=== PATIENT | female | born 1935 | race Caucasian/White ===

== ENCOUNTER → 2017-11-21 | Outpatient (CLI) | payer MEDICARE, OTHER ==
[2017-11-21 12:34] LABS: PROTHROMBIN TIME - PATIENT 95.3 SEC (9.8-11.6)
[2017-11-21 12:41] LABS: INTERNATIONAL NORMALIZED RATIO 9.6 RATIO
== END ==
LOC: CLAB 11:53
PROVIDERS: ATTEND Internal Medicine Cardiovascular Disease
DX: Z95.4 Presence of other heart-valve replacement (principal)
CPT/HCPCS: 36415; 85610

== ENCOUNTER → 2017-11-22 | Outpatient (CLI) | payer MEDICARE, OTHER ==
[2017-11-22 10:03] LABS: PROTHROMBIN TIME - PATIENT 92.3 SEC (9.8-11.6)
[2017-11-22 10:22] LABS: INTERNATIONAL NORMALIZED RATIO 9.3 RATIO
== END ==
LOC: CLAB 09:39
PROVIDERS: ATTEND Internal Medicine Cardiovascular Disease
DX: I05.9 Rheumatic mitral valve disease, unspecified (principal); Z95.4 Presence of other heart-valve replacement; Z51.81 Encounter for therapeutic drug level monitoring
CPT/HCPCS: 36415; 85610

== ENCOUNTER 2018-05-18 11:03 | Inpatient (IN) ==
[2018-05-18] MEDS ORDERED: Sod Chloride 0.9% Inj 1,000 ML IV.SIG ONE ×2 (12:34→13:52)
--- NOTE | 2018-05-18 12:57 | ED ---
HPI General Chief Complaint: Fever Stated Complaint: Multiple Complaints Time Seen by Provider: 05/18/18 12:34 Source: patient and family Mode of arrival: ambulatory Limitations: no limitations History of Present Illness HPI Narrative: 83-year-old female with PMH of HTN, stage IV breast cancer, followed by the [facility] in [place] on Coumadin presents the ED for evaluation of 3 day history of intermittent fever, highest measured temp 102 by oral thermometer. She also complains of sinus congestion, sore throat and cough productive of green sputum. She complains of dull, frontal and right sided headache x 10 days. She denies dizziness, vision changes, chest pain, palpitations, nausea, vomiting, abdominal pain, dysuria, hematuria, weakness of the extremities. She states that she was recently initiated on a new chemotherapy, capecitabine. She has only taken a few doses of this medication. She states that she knows of metastasis in the spine, right arm and left lung. She states that she recently underwent biopsy of the lung mass and is awaiting those results currently. Related Data Home Medications Medication Instructions Recorded Confirmed capecitabine 1,000 mg PO Q12H 05/18/18 05/18/18 capecitabine 500 mg PO DAILY 05/18/18 05/18/18 hydrochlorothiazide 12.5 mg PO DAILY 05/18/18 05/18/18 lisinopril 05/18/18 losartan 100 mg PO DAILY 05/18/18 05/18/18 ondansetron HCl [Zofran] 4 mg PO Q6HR 05/18/18 05/19/18 oxycodone-acetaminophen [Percocet] 1 tab PO Q4-6H PRN 05/18/18 05/18/18 pantoprazole 40 mg PO DAILY 05/18/18 05/18/18 pravastatin 20 mg PO DAILY 05/18/18 05/18/18 vit D3-folic [id number] 05/18/18 warfarin 2.5 mg PO Q OTHER DAY 05/18/18 05/18/18 warfarin [Coumadin] 1.25 mg PO EVERY OTHER DAY 05/18/18 05/18/18 Allergies Allergy/AdvReac Type Severity Reaction Status Date / Time No Known Allergies Allergy Unverified 05/18/18 12:34 Review of Systems ROS: all other systems reviewed are negative [facility] Medical History Medical History Bone metastasis (Acute) Breast cancer (Acute) Cataract (Acute) GERD (gastroesophageal reflux disease) (Acute) Gallbladder disease (Acute) HTN (hypertension) (Acute) High cholesterol (Acute) History of hysterectomy (Acute) Metastatic breast cancer (Acute) Port catheter in place (Acute) Surgical History Surgical History History of colon resection (Acute) History of heart valve replacement (Acute) S/P hip replacement (Acute) Social History Social History Substance History: No History of Abuse Second Hand Smoke Exposure: No Smoking Status: Never smoker Tobacco Type: Cigarettes How Often Do You Have a Drink Containing Alcohol: Never Recent Travel in [facility] within the Last 8 Weeks: No Recent Out of Country Travel within the Last 8 Weeks: No Immunization History Tetanus Immunization: Unsure Hx Influenza Vaccine This Season: No Exam Narrative Exam Narrative: GENERAL: Well-nourished, well-developed white female in no acute distress. SKIN: Focused skin assessment warm/dry. Well-healed port in the right chest. HEAD: Atraumatic. Normocephalic. EYES: Pupils equal and round. No scleral icterus. No injection or drainage. ENT: No nasal bleeding or discharge. Mucous membranes pink and moist. Pearly solis tympanic membranes bilaterally. Oropharynx without erythema, edema, exudate. NECK: Trachea midline. No JVD. CARDIOVASCULAR: Regular rate and rhythm. No murmur appreciated. RESPIRATORY: No accessory muscle use. Clear to auscultation. Breath sounds marginally diminished in the left lower lobe. GASTROINTESTINAL: Abdomen soft, non-tender, nondistended. Hepatic and splenic margins not palpable. MUSCULOSKELETAL: No obvious deformities. No clubbing. No cyanosis. No edema. Tender to palpation of the distal third, dorsal aspect of the right foot. Moves extremities spontaneously. NEUROLOGICAL: Awake and alert. No obvious cranial nerve deficits. Motor grossly within normal limits. Normal speech. PSYCHIATRIC: Appropriate mood and affect; insight and judgment normal. Course Initial Documented Vital Signs Temperature 97.9 F 05/18/18 11:08 Pulse Rate 83 05/18/18 11:08 Respiratory Rate 17 05/18/18 11:08 Blood Pressure 140/76 05/18/18 11:08 Pulse Oximetry 98 05/18/18 11:08 Last Documented Vital Signs Temperature 98.3 F 05/19/18 08:30 Pulse Rate 85 05/19/18 08:30 Respiratory Rate 16 05/19/18 08:30 Blood Pressure 153/77 H 09/24/18 04:00 Pulse Oximetry 98 05/19/18 08:30 Medical Decision Making XIOMY Attestation XIOMY supervised visit: Yes Attestation: I, Dr. Mcclellan, have reviewed the advance practice practitioner's documentation and am in agreement, met with the patient face to face, made the diagnosis, and the medical decision making was done by me. *My assessment and Findings: Patient seen and examined by me in addition to Emilia Huerta, this is a well-appearing 83-year-old female, vital signs within normal limits, fevers to 102 last night documented by her daughter. She did take some Tylenol prior to arrival and afebrile here. History of stage IV breast cancer, recent first dose of oral chemotherapy, followed primarily out of [facility] at this time but has been established with Dr. Castorena. Patient also complains of headache, but she is anticoagulated, CT head pending, she is neurologically intact, chest x-ray shows suspected consolidation of left lower lobe and the patient has had a recent biopsy of the lung. I have ordered a CT scan with IV contrast as well. Empiric antibiotics while we are waiting for her lab results. Patient's workup is significant for minimal pneumothorax (post procedure) and possible intracranial hemorrhage on ct which was not fully excluded on MRI. She also has significant metastatic lesions on all imaging studies. No source of fever readily identifiable but my concern is for the CT findings in lieu of her headache, anticoagulation and malignant disease. I don't think there is significant benefit to reversing her coumadin at this stage. Will place in the hospital for evaluation by neurosurgery. MDM Narrative Medical decision making narrative: 83-year-old female with PMH of HTN, stage IV metastatic breast cancer presents the ED for evaluation of intermittent fever, highest 102 last night by oral thermometer. Afebrile on arrival. Patient also complains of 10 day history of frontal and right-sided headache. Vitals reviewed. No focal neuro deficits on exam. Lung sounds clear and equal bilaterally. No lower extremity edema. IV was established. Patient was administered 1 L normal saline, 4 mg of morphine, 4 mg Zofran. CBC: WBC 6.2. RBCs 2.64. Hemoglobin 8.6. CMP: Potassium 3.3. BUN 13, creatinine 1.32, GFR 3 9. Calcium 10.4. Albumin 2.9. LACTIC ACID 0.9. INR 2.0. CXR: Metastatic disease in left lower lobe consolidation suspected. Valvular prosthesis noted. Vancomycin and Zosyn initiated. CT CHEST WITH CONTRAST: Metastatic disease with pulmonary nodules, bilateral effusions, left greater than right, ascending aortic aneurysm, indeterminate hypervascular liver lesion, right pneumothorax. CT HEAD: Density in the right frontal cortical/subcortical white matter questionable sliver-like hemorrhage, MRI with and without contrast recommended. MRI BRAIN: Extra-axial mass, possible metastases in the skull bones, does not completely rule out risk of ICH. I spoke with regarding the MRI findings. He does not think the patient needs admission to the ICU. Will admit to the medicine team for further evaluation of these findings. I spoke with Dr. KARIMI who agrees to accept the patient to the medicine service. Please see their notes for disposition. Medical Screen Exam Complete: Yes Emergency Medical Condition: Yes Lab Data Result diagrams: 05/19/18 03:50 05/19/18 03:50 Lab Results 05/18/18 05/18/18 05/18/18 Range/Units 13:15 13:15 13:15 WBC 6.2 (4.0-11.0) th/mm3 RBC 2.64 L (4.00-5.30) mil/mm3 Hgb 8.6 L (11.6-15.3) gm/dL Hct 25.3 L (35.0-46.0) % MCV 95.9 (80.0-100.0) fL MCH 32.5 (27.0-34.0) pg MCHC 33.9 (32.0-36.0) % RDW 14.8 (11.6-17.2) % Plt Count 224 (150-450) th/mm3 MPV 8.3 (7.0-11.0) fL Prelim Diff (Auto) Slide review pending Neut % (Auto) 77.4 H (16.0-70.0) % Lymph % (Auto) 9.9 (9.0-44.0) % [place] % (Auto) 8.6 H (0.0-8.0) % Eos % (Auto) 2.9 (0.0-4.0) % Baso % (Auto) 1.2 (0.0-2.0) % Neut # (Auto) 4.8 (1.8-7.7) th/mm3 Lymph # (Auto) 0.6 L (1.0-4.8) th/mm3 [place] # (Auto) 0.5 (0.0-0.9) th/mm3 Eos # (Auto) 0.2 (0.0-0.4) th/mm3 Baso # (Auto) 0.1 (0.0-0.2) th/mm3 WBC Differential . Diff Scan Auto diff confirmed Differential Comment . PT (9.8-11.6) sec INR Ratio Sodium 139 (136-145) meq/L Potassium 3.3 L (3.5-5.1) meq/L Chloride 106 (98-107) meq/L Carbon Dioxide 24.7 (21.0-32.0) meq/L Anion Gap 8 (5-15) meq/L BUN 13 (7-18) mg/dL Creatinine 1.32 H (0.50-1.00) mg/dL Estimated GFR 39 L (>89) mL/min Random Glucose 91 (74-106) mg/dL Lactic Acid 0.9 (0.4-2.0) mmol/L Calcium 10.4 H (8.5-10.1) mg/dL Total Bilirubin 0.5 (0.2-1.0) mg/dL AST 40 H (15-37) U/L ALT 17 (10-53) U/L Alkaline Phosphatase 192 H (45-117) U/L Total Protein 6.3 L (6.4-8.2) g/dL Albumin 2.9 L (3.4-5.0) g/dL Urine Color (Yellw/Straw) Urine Clarity (Clear) Urine pH (5.0-8.5) Ur Specific Pinon (1.002-1.035) Urine Protein (Neg-Trace) mg/dL Urine Glucose (UA) (Negative) mg/dL Urine Ketones (Negative) mg/dL Urine Occult Blood (Negative) Urine Nitrate (Negative) Urine Bilirubin (Negative) Urine Urobilinogen (Less than 2) mg/dL Ur Leukocyte Esterase (Negative) Urine RBC (0-3) /hpf Urine WBC (0-5) /hpf Ur Squamous Epith Cells (0-5) /hpf Ur Transition Epith Cell (None) /hpf Ur Renal Epithelial Cell (None) /hpf Urine Bacteria (None) /hpf Urine Mucus (Occasional) /lpf Micro UA Comment Ur Microscopic Review Urine Culture Comments 05/18/18 05/18/18 05/19/18 Range/Units 14:40 15:20 03:50 WBC (4.0-11.0) th/mm3 RBC (4.00-5.30) mil/mm3 Hgb (11.6-15.3) gm/dL Hct (35.0-46.0) % MCV (80.0-100.0) fL MCH (27.0-34.0) pg MCHC (32.0-36.0) % RDW (11.6-17.2) % Plt Count (150-450) th/mm3 MPV (7.0-11.0) fL Prelim Diff (Auto) Neut % (Auto) (16.0-70.0) % Lymph % (Auto) (9.0-44.0) % [place] % (Auto) (0.0-8.0) % Eos % (Auto) (0.0-4.0) % Baso % (Auto) (0.0-2.0) % Neut # (Auto) (1.8-7.7) th/mm3 Lymph # (Auto) (1.0-4.8) th/mm3 [place] # (Auto) (0.0-0.9) th/mm3 Eos # (Auto) (0.0-0.4) th/mm3 Baso # (Auto) (0.0-0.2) th/mm3 WBC Differential Diff Scan Differential Comment PT 20.4 H 17.6 H (9.8-11.6) sec INR 2.0 1.7 Ratio Sodium (136-145) meq/L Potassium (3.5-5.1) meq/L Chloride (98-107) meq/L Carbon Dioxide (21.0-32.0) meq/L Anion Gap (5-15) meq/L BUN (7-18) mg/dL Creatinine (0.50-1.00) mg/dL Estimated GFR (>89) mL/min Random Glucose (74-106) mg/dL Lactic Acid (0.4-2.0) mmol/L Calcium (8.5-10.1) mg/dL Total Bilirubin (0.2-1.0) mg/dL AST (15-37) U/L ALT (10-53) U/L Alkaline Phosphatase (45-117) U/L Total Protein (6.4-8.2) g/dL Albumin (3.4-5.0) g/dL Urine Color Straw (Yellw/Straw) Urine Clarity Clear (Clear) Urine pH 5.0 (5.0-8.5) Ur Specific [place] 1.006 (1.002-1.035) Urine Protein Negative (Neg-Trace) mg/dL Urine Glucose (UA) Negative (Negative) mg/dL Urine Ketones Negative (Negative) mg/dL Urine Occult Blood Negative (Negative) Urine Nitrate Negative (Negative) Urine Bilirubin Negative (Negative) Urine Urobilinogen Less than 2 (Less than 2) mg/dL Ur Leukocyte Esterase Negative (Negative) Urine RBC Less than 1 (0-3) /hpf Urine WBC 4 (0-5) /hpf Ur Squamous Epith Cells <1 (0-5) /hpf Ur Transition Epith Cell 1 (None) /hpf Ur Renal Epithelial Cell <1 (None) /hpf Urine Bacteria Rare H (None) /hpf Urine Mucus Few H (Occasional) /lpf Micro UA Comment Culture not ind Ur Microscopic Review Not Reportable Urine Culture Comments Culture not ind 05/19/18 05/19/18 Range/Units 03:50 03:50 WBC 7.3 (4.0-11.0) th/mm3 RBC 2.84 L (4.00-5.30) mil/mm3 Hgb 9.1 L (11.6-15.3) gm/dL Hct 27.3 L (35.0-46.0) % MCV 96.4 (80.0-100.0) fL MCH 32.0 (27.0-34.0) pg MCHC 33.2 (32.0-36.0) % RDW 15.2 (11.6-17.2) % Plt Count 263 (150-450) th/mm3 MPV 9.1 (7.0-11.0) fL Prelim Diff (Auto) Slide review pending Neut % (Auto) 76.6 H (16.0-70.0) % Lymph % (Auto) 11.0 (9.0-44.0) % [place] % (Auto) 9.1 H (0.0-8.0) % Eos % (Auto) 2.4 (0.0-4.0) % Baso % (Auto) 0.9 (0.0-2.0) % Neut # (Auto) 5.6 (1.8-7.7) th/mm3 Lymph # (Auto) 0.8 L (1.0-4.8) th/mm3 [place] # (Auto) 0.7 (0.0-0.9) th/mm3 Eos # (Auto) 0.2 (0.0-0.4) th/mm3 Baso # (Auto) 0.1 (0.0-0.2) th/mm3 WBC Differential . Diff Scan Auto diff confirmed Differential Comment . PT (9.8-11.6) sec INR Ratio Sodium 140 (136-145) meq/L Potassium 3.8 (3.5-5.1) meq/L Chloride 106 (98-107) meq/L Carbon Dioxide 24.6 (21.0-32.0) meq/L Anion Gap 9 (5-15) meq/L BUN 12 (7-18) mg/dL Creatinine 1.38 H (0.50-1.00) mg/dL Estimated GFR 37 L (>89) mL/min Random Glucose 79 (74-106) mg/dL Lactic Acid (0.4-2.0) mmol/L Calcium 10.3 H (8.5-10.1) mg/dL Total Bilirubin (0.2-1.0) mg/dL AST (15-37) U/L ALT (10-53) U/L Alkaline Phosphatase (45-117) U/L Total Protein (6.4-8.2) g/dL Albumin (3.4-5.0) g/dL Urine Color (Yellw/Straw) Urine Clarity (Clear) Urine pH (5.0-8.5) Ur Specific [place] (1.002-1.035) Urine Protein (Neg-Trace) mg/dL Urine Glucose (UA) (Negative) mg/dL Urine Ketones (Negative) mg/dL Urine Occult Blood (Negative) Urine Nitrate (Negative) Urine Bilirubin (Negative) Urine Urobilinogen (Less than 2) mg/dL Ur Leukocyte Esterase (Negative) Urine RBC (0-3) /hpf Urine WBC (0-5) /hpf Ur Squamous Epith Cells (0-5) /hpf Ur Transition Epith Cell (None) /hpf Ur Renal Epithelial Cell (None) /hpf Urine Bacteria (None) /hpf Urine Mucus (Occasional) /lpf Micro UA Comment Ur Microscopic Review Urine Culture Comments Imaging Data Radiologist's impression: Chest X-Ray 05/18/18 12:35 CONCLUSION: Metastatic disease to the chest and left lower lobe consolidation suspected. Head CT 05/18/18 12:57 The examination demonstrates patchy hypodensity in the bilateral periventricular white matter and centrum semiovale most likely related to chronic microvascular ischemic disease. There is identified in the right frontal cortical/subcortical region on axial image 21 curvilinear high density which may reflect a small amount of parenchymal blood. No surrounding edema. No mass effect. CONCLUSION: 1. Patchy white matter disease. This is most likely chronic in nature. 2. Indeterminate area of hypodensity in the right frontal cortical/subcortical white matter may reflect a sliver-like area of hemorrhage. Given the history of malignancy consider MRI of the brain with and without contrast for further assessment. . Chest CT 05/18/18 13:39 CONCLUSION: 1. Metastatic disease to the chest with bilateral pulmonary nodules, bilateral effusions left greater than right. 2. Ascending aortic aneurysm. 3. Indeterminate hypervascular liver lesion. 4. Cholelithiasis. 5. There is a right-sided pneumothorax. Foot X-Ray 05/18/18 13:52 CONCLUSION: Decreased bone density. Calcaneal spur. Head MRI 05/18/18 14:27 CONCLUSION: 1. The area of abnormal increased density on CT has corresponding blooming artifact on susceptibility weighted images. This can be seen with a small parenchymal bleed versus artifact related to calcification from previous insult. A short interval follow-up CT in 2 weeks' time may be of benefit to assess for resolution of this finding. 2. Additional abnormalities on this examination include an extra-axial mass along the right frontal falx cerebri measuring up to 1 cm. The differential diagnosis includes a meningioma along the falx versus a metastatic deposit. 3. The pituitary is heterogeneous and there is thickening of the infundibular stalk. 4. Abnormal marrow replacement and enhancement is seen within the skull base as described above. Metastatic disease would be a leading consideration. Discharge Plan Discharge Disposition Patient Disposition: 30 Still Patient Physicians Team ED Provider: Cortes Mcclellan ED Midlevel Provider: Emilia Huerta Primary Care Provider: UNKNOWN, Attending Provider: Teddy Balderas Other Providers: Jesús Khoury ; Nabila Spence ; Katy Clemons ; Klaus Tobar Discharge Interventions Interventions: ED Discharge Assessment Last Done: 05/19/18 00:30 Vital Signs Last Done: 05/18/18 11:54 Status ED Status: Left Department Discharge Information Discharge Date/Time: 05/19/18 00:31
[2018-05-18 13:26] LABS: Baso # (Auto) 0.1 th/mm3 (0.0-0.2); Baso % (Auto) 1.2 % (0.0-2.0); Eos # (Auto) 0.2 th/mm3 (0.0-0.4); Eos % (Auto) 2.9 % (0.0-4.0); Hematocrit 25.3 % (35.0-46.0); Hemoglobin 8.6 gm/dL (11.6-15.3); Lymph # (Auto) 0.6 th/mm3 (1.0-4.8); Lymph % (Auto) 9.9 % (9.0-44.0); Mean Corpuscular HGB Conc 33.9 % (32.0-36.0); Mean Corpuscular Hemoglobin 32.5 pg (27.0-34.0); Mean Corpuscular Volume 95.9 fL (80.0-100.0); Mean Platelet Volume 8.3 fL (7.0-11.0); Mono # (Auto) 0.5 th/mm3 (0.0-0.9); Mono % (Auto) 8.6 % (0.0-8.0); Neut # (Auto) 4.8 th/mm3 (1.8-7.7); Neut % (Auto) 77.4 % (16.0-70.0); Platelet Count 224 th/mm3 (150-450); Red Blood Count 2.64 mil/mm3 (4.00-5.30); Red Cell Distribution Width 14.8 % (11.6-17.2); White Blood Count 6.2 th/mm3 (4.0-11.0)
--- NOTE | 2018-05-18 13:30 | XR ---
EXAM DATE: 05/18/2018 1:23 PM EDT AGE/SEX: 83 years / Female INDICATIONS: Fever CLINICAL DATA: This is the patient's initial encounter. Patient reports that signs and symptoms have been present for 1 day and indicates a pain score of 0/10. MEDICAL/SURGICAL HISTORY: . Hypertension . Heart valve repair, Port Placement COMPARISON: [facility], PET/CT TUMOR, 04/18/2018. . FINDINGS: Right-sided portacatheter is noted and the tip overlies the SVC. Sternotomy wires and cardiac valvula r prosthesis noted. Surgical clips overlie the left axilla. Intramedullary mahin and screw fixation of the right humerus is noted. There is a history of breast cancer with metastatic disease to the chest. Bilateral pulmonary nodules are noted. There is consolidation suspected in the left lower lobe. Card iomegaly. CONCLUSION: Metastatic disease to the chest and left lower lobe consolidation suspected. Electronically signed by: Kevyn Poole MD 05/18/2018 1:29 PM EDT
[2018-05-18] MEDS ORDERED: Vancomycin Inj 1,000 MG in Sodium Chlor 0.9% Inj 250 ML IV.SIG ONE (13:39)
[2018-05-18] MEDS ORDERED: Piperacil/Tazo 4.5 GM Premix 4.5 GM/100 ML BAG IV.SIG ONE (13:39)
[2018-05-18 13:43] LABS: Albumin 2.9 g/dL (3.4-5.0); Anion Gap 8 meq/L (5-15); Aspartate Aminotransferase 40 U/L (15-37); Blood Urea Nitrogen 13 mg/dL (7-18); Calcium 10.4 mg/dL (8.5-10.1); Carbon Dioxide 24.7 meq/L (21.0-32.0); Chloride 106 meq/L (98-107); Glomerular Filtration Rate 39 mL/min (>89); Glucose,Random 91 mg/dL (74-106); Potassium 3.3 meq/L (3.5-5.1); Sodium 139 meq/L (136-145)
[2018-05-18 13:44] LABS: Alanine Aminotransferase 17 U/L (10-53)
[2018-05-18 13:47] LABS: Alkaline Phosphatase 192 U/L (45-117); Total Protein 6.3 g/dL (6.4-8.2)
[2018-05-18] MEDS ORDERED: Morphine Inj 4 MG/ML Vial IV.PUSH ONE ×2 (13:52→18:06)
--- NOTE | 2018-05-18 14:24 | CT ---
EXAM DATE: 05/18/2018 2:18 PM EDT AGE/SEX: 83 years / Female INDICATIONS: Headaches 1 week, Left facial swelling and fever 1 day CLINICAL DATA: This is the patient's initial encounter. Patient reports that signs and symptoms have been present for 1 week and indicates a pain score of 6/10. MEDICAL/SURGICAL HISTORY: Carcinoma, breast. Hypertension. . Heart valve replacement RADIATION DOSE: 56.37 CTDI (mGy) COMPARISON: [facility], PET/CT TUMOR, 04/18/2018. . TECHNIQUE: CT of the head without contrast. Using automated exposure control and adjustment of the mA and/or kV according to patient size, radiation dose was kept as low as reasonably achievable to ob tain optimal diagnostic quality images. DICOM format image data is available electronically for revi ew and comparison. FINDINGS: The examination demonstrates patchy hypodensity in the bilateral periventricular white matter and igor trum semiovale most likely related to chronic microvascular ischemic disease. There is identified in the right frontal cortical/subcortical region on axial image 21 curvilinear high density which may re flect a small amount of parenchymal blood. No surrounding edema. No mass effect. CONCLUSION: 1. Patchy white matter disease. This is most likely chronic in nature. 2. Indeterminate area of hypodensity in the right frontal cortical/subcortical white matter may refl ect a sliver-like area of hemorrhage. Given the history of malignancy consider MRI of the brain with and without contrast for further assessment. . Electronically signed by: Kevyn Poole MD 05/18/2018 2:23 PM EDT
--- NOTE | 2018-05-18 14:54 | CT ---
EXAM DATE: 05/18/2018 2:36 PM EDT AGE/SEX: 83 years / Female INDICATIONS: Metastatic breast cancer, Left lower lung mass CLINICAL DATA: This is the patient's initial encounter. Patient reports that signs and symptoms have been present for 1 week and indicates a pain score of 6/10. MEDICAL/SURGICAL HISTORY: Carcinoma, breast. Hypertension. . Heart valve replacement RADIATION DOSE: 9.35 CTDI (mGy) COMPARISON: [facility] [place], CHEST 1V SINGLE AP, 05/18/2018. . TECHNIQUE: Multiple contiguous axial images were obtained through the chest during bolus infusion of 46ML ml Visipaque 320 (iodixanol) nonionic water-soluble contrast as a single exam dose. Images w ere obtained in suspended respiration using multiple row detector helical technique. Using automated exposure control and adjustment of the mA and/or kV according to patient size, radiation dose was ke pt as low as reasonably achievable to obtain optimal diagnostic quality images. DICOM format image d ayanna is available electronically for review and comparison. FINDINGS: There are bilateral pleural effusions identified. There is scarring of both kidneys, and cholelithias is is noted. The adrenal glands are normal. The patient has a history of left breast cancer and lumpe ctomy. There is irregular soft tissue in the left breast which may be related to postsurgical changes measuring 4.3 cm on axial image 26. In the left hepatic lobe medial segment a 9.3 mm hypervascular n odule is present. This is indeterminate. Review of bone windows demonstrate intramedullary mahin and sc rew fixation of the right humerus, median sternotomy wires. A right-sided portacatheter is present an d the tip terminates in the SVC. Aortic valve prosthesis is noted, and there is aneurysmal dilatation of the ascending aorta identified measuring 4.1 x 4.4 cm in AP transverse dimension on image 30. Rev iew of lung windows demonstrate a right-sided pneumothorax, and multiple bilateral pulmonary nodules. This includes the largest nodule in the left upper lobe measuring 1.6 cm, and in the right lung the largest nodule is seen in the lower lobe measuring 2.8 x 2.8 cm on image 30. There is atelectasis in the left lower lobe identified. Osseous structures demonstrate degenerative changes of the spine. CONCLUSION: 1. Metastatic disease to the chest with bilateral pulmonary nodules, bilateral effusions left greate r than right. 2. Ascending aortic aneurysm. 3. Indeterminate hypervascular liver lesion. 4. Cholelithiasis. 5. There is a right-sided pneumothorax. Electronically signed by: Kevyn Poole MD 05/18/2018 2:52 PM EDT
--- NOTE | 2018-05-18 15:00 | XR ---
EXAM DATE: 05/18/2018 2:57 PM EDT AGE/SEX: 83 years / Female INDICATIONS: Right foot pain across top of foot. CLINICAL DATA: This is the patient's initial encounter. Patient reports that signs and symptoms have been present for 1 day and indicates a pain score of 4/10. MEDICAL/SURGICAL HISTORY: . Carcinoma, breast. Hypertension. . . Heart valve replacement. Por t placement COMPARISON: No prior exams available for comparison. FINDINGS: Bony structures are intact and in normal alignment. Osseous density is decreased. Soft tissues are u nremarkable. No radiopaque foreign bodies seen. Plantar calcaneal spur. CONCLUSION: Decreased bone density. Calcaneal spur. Electronically signed by: Kevyn Poole MD 05/18/2018 2:58 PM EDT
[2018-05-18 15:09] LABS: Prothrombin Time 20.4 sec (9.8-11.6)
[2018-05-18 15:53] LABS: Bacteria,Urine Rare /hpf; Bilirubin,Urine Negative (Negative); Clarity,Urine Clear (Clear); Color,Urine Straw (Yellw/Straw); Glucose,Urine (UA) Negative (Negative); Leukocyte Esterase,Urine Negative (Negative); Mucus,Urine Few /lpf (Occasional); Nitrite,Urine Negative (Negative); Renal Epithelial Cells,Urine <1 /hpf; Specific Gravity,Urine 1.006 (1.002-1.035); Squamous Epithelial Cell,Urine <1 /hpf (0-5); Transitional Epi Cells,Urine 1 /hpf
[2018-05-18] MEDS ORDERED: Gadobutrol PF 7.5 MMOL/7.5 ML Vial (for RAD) IV.SIG ONE (16:10)
--- NOTE | 2018-05-18 16:27 | MR ---
EXAM DATE: 05/18/2018 4:18 PM EDT AGE/SEX: 83 years / Female INDICATIONS: . Generalized weakness. CLINICAL DATA: This is the patient's initial encounter. Patient reports that signs and symptoms have been present for 1 day and indicates a pain score of 0/10. MEDICAL/SURGICAL HISTORY: Carcinoma, breast. Metastatic disease. Hypertension. Mastectomy, le ft. Heart valve replacement. COMPARISON: [facility] [place]/O [place], 05/18/2018. . TECHNIQUE: Multiplanar, multisequence examination of the brain was performed without and with 6cc ml Gadavist (gadobutrol) contrast as a single exam dose. FINDINGS: Diffusion weighted images demonstrate no evidence for acute infarction. There is abnormal decreased T 1 signal replacing the normal fatty marrow at the clivus and right occipital condyle. There is patchy enhancement following contrast administration at this level. The pituitary demonstrates heterogeneou s enhancement and there is thickening of the infundibular stalk. In addition there is an extra-axial avidly enhancing mass along the falx on the right anteriorly measuring 1.1 x 0.6 cm in AP and transve rse dimension. There is significant blooming artifact seen on susceptibility weighted images in the r ight frontal region on axial image 46 corresponding to the area of hypodensity on CT examination from today. This would be consistent with a small area of acute blood versus calcification. CONCLUSION: 1. The area of abnormal increased density on CT has corresponding blooming artifact on susceptibilit y weighted images. This can be seen with a small parenchymal bleed versus artifact related to calcifi cation from previous insult. A short interval follow-up CT in 2 weeks' time may be of benefit to asse ss for resolution of this finding. 2. Additional abnormalities on this examination include an extra-axial mass along the right frontal falx cerebri measuring up to 1 cm. The differential diagnosis includes a meningioma along the falx ve rsus a metastatic deposit. 3. The pituitary is heterogeneous and there is thickening of the infundibular stalk. 4. Abnormal marrow replacement and enhancement is seen within the skull base as described above. Met astatic disease would be a leading consideration. Electronically signed by: Kevyn Poole MD 05/18/2018 4:25 PM EDT
--- NOTE | 2018-05-18 18:55 | P.HP ---
History of Present Illness Primary Care Physician: UNKNOWN Chief Complaint: headache History of Present Illness: patient is a 83 y/o female with metastatic breast cancer who presented to ER with headache. she says that she's had right-sided headache for about ten days. headache was associated with nausea but with no emesis or dizziness. she says that she had a fever at home although she was afebrile at the time of presentation to ER. she denies any sob but has occasional cough. she says that she had a lung biopsy about ten days ago. she denies any chest pain or abdominal pain but she says that she's feeling weak. she's being followed up by [facility] and . Inpatient Certification: I certify that the inpatient services were ordered in accordance with Medicare regulations governing the order. This includes certification that hospital inpatient services are reasonable and necessary and in the case of services not specified as inpatient-only under 42 CFR 419.22(n), that they are appropriately provided as inpatient services in accordance to with the 2-midnight benchmark under 43 CFR 412.3(e) Review of Systems All other systems reviewed negative except as stated in HPI [facility] - History History Provided By: Patient - Medical History Medical History: Medical History (Last Reviewed 05/18/18 @ 18:49 by Doc Hurtado MD) Breast cancer HTN (hypertension) - Surgical History Surgical History: Surgical History (Last Reviewed 05/18/18 @ 18:49 by Doc Hurtado MD) History of heart valve repair - Family History Family History: Family History (Last Reviewed 05/18/18 @ 18:49 by Doc Hurtado MD) Other Brain aneurysm - Tobacco History Second Hand Smoke Exposure: No Tobacco Use In Past 30 Days: No Smoking Status: Never smoker Tobacco Type: Cigarettes - Alcohol History How Often Do You Have a Drink Containing Alcohol: Never - Substance Use History Substance History: No History of Abuse - Travel History Recent Travel in the [place] Within the Last 8 Weeks: No Recent Travel Out of the Country Within the Last 8 Weeks: No - Immunization History Tetanus Immunization: Unsure Hx Influenza Vaccine This Season: No Medications and Allergies Active Medications: Active Medications Pantoprazole Sodium (Protonix) 40 mg PO DAILY FAVIO Pravastatin Sodium (Pravachol) 20 mg PO DAILY FAVIO Sodium Chloride (Ns Flush) 2 ml IV.FLUSH PRN PRN PRN Reason: FLUSH AFTER USING IV ACCESS Allergies Allergy/AdvReac Type Severity Reaction Status Date / Time No Known Allergies Allergy Unverified 05/18/18 12:34 Home Medications Medication Instructions Recorded Confirmed Type capecitabine 1,000 mg PO Q12H 05/18/18 05/18/18 History capecitabine 500 mg PO DAILY 05/18/18 05/18/18 History hydrochlorothiazide 12.5 mg PO DAILY 05/18/18 05/18/18 History lisinopril 05/18/18 History losartan 100 mg PO DAILY 05/18/18 05/18/18 History ondansetron HCl [Zofran] 05/18/18 History oxycodone-acetaminophen [Percocet] 1 tab PO Q4-6H PRN 05/18/18 05/18/18 History pantoprazole 40 mg PO DAILY 05/18/18 05/18/18 History pravastatin 20 mg PO DAILY 05/18/18 05/18/18 History vit D3-folic [id number] 05/18/18 History warfarin 2.5 mg PO Q OTHER DAY 05/18/18 05/18/18 History warfarin [Coumadin] 1.25 mg PO EVERY OTHER DAY 05/18/18 05/18/18 History Exam Vital signs: Vital Signs 05/18/18 11:08 05/18/18 11:54 05/18/18 15:19 Temperature 97.9 F 98.8 F Pulse Rate 83 81 75 Respiratory Rate 17 16 16 Blood Pressure 140/76 186/81 H 159/70 H Pulse Oximetry 98 98 98 05/18/18 15:25 05/18/18 17:32 05/18/18 17:34 Temperature 98.9 F Pulse Rate 79 Respiratory Rate 18 16 16 Blood Pressure 142/64 H Pulse Oximetry 96 Intake & Output 05/17/18 05/18/18 05/18/18 18:59 06:59 18:59 Intake Total 2099 Balance 2099 Weight 58.967 kg Intake: IV 2099 - Constitutional no acute distress - Routine HEENT Exam Eye: Present: PERRL - Routine Neck Exam Present: supple - Routine Respiratory Exam Present: CTA bilaterally - Routine Cardiovascular Exam Present: RRR - Routine Abdominal Exam Present: soft - Routine Extremities Exam Comments: no pedal edema. - Routine Neurological Exam Present: alert, oriented X3 Results - Labs CBC & Chem 7: 05/18/18 13:15 05/18/18 13:15 Labs: Laboratory Results - last 24 hr 05/18/18 05/18/18 05/18/18 13:15 13:15 13:15 WBC 6.2 RBC 2.64 L Hgb 8.6 L Hct 25.3 L MCV 95.9 MCH 32.5 MCHC 33.9 RDW 14.8 Plt Count 224 MPV 8.3 Prelim Diff (Auto) Slide review pending Neut % (Auto) 77.4 H Lymph % (Auto) 9.9 [place] % (Auto) 8.6 H Eos % (Auto) 2.9 Baso % (Auto) 1.2 Neut # (Auto) 4.8 Lymph # (Auto) 0.6 L [place] # (Auto) 0.5 Eos # (Auto) 0.2 Baso # (Auto) 0.1 WBC Differential . Diff Scan Auto diff confirmed Differential Comment . PT INR Sodium 139 Potassium 3.3 L Chloride 106 Carbon Dioxide 24.7 Anion Gap 8 BUN 13 Creatinine 1.32 H Estimated GFR 39 L Random Glucose 91 Lactic Acid 0.9 Calcium 10.4 H Total Bilirubin 0.5 AST 40 H ALT 17 Alkaline Phosphatase 192 H Total Protein 6.3 L Albumin 2.9 L Urine Color Urine Clarity Urine pH Ur Specific Oil Trough Urine Protein Urine Glucose (UA) Urine Ketones Urine Occult Blood Urine Nitrate Urine Bilirubin Urine Urobilinogen Ur Leukocyte Esterase Urine RBC Urine WBC Ur Squamous Epith Cells Ur Transition Epith Cell Ur Renal Epithelial Cell Urine Bacteria Urine Mucus Micro UA Comment Ur Microscopic Review Urine Culture Comments 05/18/18 05/18/18 14:40 15:20 WBC RBC Hgb Hct MCV MCH MCHC RDW Plt Count MPV Prelim Diff (Auto) Neut % (Auto) Lymph % (Auto) [place] % (Auto) Eos % (Auto) Baso % (Auto) Neut # (Auto) Lymph # (Auto) [place] # (Auto) Eos # (Auto) Baso # (Auto) WBC Differential Diff Scan Differential Comment PT 20.4 H INR 2.0 Sodium Potassium Chloride Carbon Dioxide Anion Gap BUN Creatinine Estimated GFR Random Glucose Lactic Acid Calcium Total Bilirubin AST ALT Alkaline Phosphatase Total Protein Albumin Urine Color Straw Urine Clarity Clear Urine pH 5.0 Ur Specific Oil Trough 1.006 Urine Protein Negative Urine Glucose (UA) Negative Urine Ketones Negative Urine Occult Blood Negative Urine Nitrate Negative Urine Bilirubin Negative Urine Urobilinogen Less than 2 Ur Leukocyte Esterase Negative Urine RBC Less than 1 Urine WBC 4 Ur Squamous Epith Cells <1 Ur Transition Epith Cell 1 Ur Renal Epithelial Cell <1 Urine Bacteria Rare H Urine Mucus Few H Micro UA Comment Culture not ind Ur Microscopic Review Not Reportable Urine Culture Comments Culture not ind - Imaging Impressions Chest X-Ray 05/18/18 12:35 CONCLUSION: Metastatic disease to the chest and left lower lobe consolidation suspected. Head CT 05/18/18 12:57 The examination demonstrates patchy hypodensity in the bilateral periventricular white matter and centrum semiovale most likely related to chronic microvascular ischemic disease. There is identified in the right frontal cortical/subcortical region on axial image 21 curvilinear high density which may reflect a small amount of parenchymal blood. No surrounding edema. No mass effect. CONCLUSION: 1. Patchy white matter disease. This is most likely chronic in nature. 2. Indeterminate area of hypodensity in the right frontal cortical/subcortical white matter may reflect a sliver-like area of hemorrhage. Given the history of malignancy consider MRI of the brain with and without contrast for further assessment. . Chest CT 05/18/18 13:39 CONCLUSION: 1. Metastatic disease to the chest with bilateral pulmonary nodules, bilateral effusions left greater than right. 2. Ascending aortic aneurysm. 3. Indeterminate hypervascular liver lesion. 4. Cholelithiasis. 5. There is a right-sided pneumothorax. Foot X-Ray 05/18/18 13:52 CONCLUSION: Decreased bone density. Calcaneal spur. Head MRI 05/18/18 14:27 CONCLUSION: 1. The area of abnormal increased density on CT has corresponding blooming artifact on susceptibility weighted images. This can be seen with a small parenchymal bleed versus artifact related to calcification from previous insult. A short interval follow-up CT in 2 weeks' time may be of benefit to assess for resolution of this finding. 2. Additional abnormalities on this examination include an extra-axial mass along the right frontal falx cerebri measuring up to 1 cm. The differential diagnosis includes a meningioma along the falx versus a metastatic deposit. 3. The pituitary is heterogeneous and there is thickening of the infundibular stalk. 4. Abnormal marrow replacement and enhancement is seen within the skull base as described above. Metastatic disease would be a leading consideration. Caprini VTE Risk Assessment Caprini VTE Risk Assessment: Moderate/High Risk (score >= 2) VTE Pharmacological Exception Reason: High risk for bleeding Caprini Risk Assessment Model: Point Value = 1 Point Value = 2 Point Value = 3 Point Value = 5 Age 41-60 Minor surgery BMI > 25 kg/m2 Swollen legs Varicose veins or History of unexplained or recurrent spontaneous Oral contraceptives or hormone replacement Sepsis (< 1 month) Serious lung disease, including pneumonia (< 1 month) Abnormal pulmonary function Acute myocardial infarction Congestive heart failure (< 1 month) History of inflammatory bowel disease Medical patient at bed rest Age 61-74 Arthroscopic surgery Major open surgery (> 45 min) Laparoscopic surgery (> 45 min) Malignancy Confined to bed (> 72 hours) Immobilizing plaster cast Central venous access Age >= 75 History of VTE Family history of VTE Factor V Leiden Prothrombin [id number] Lupus anticoagulant Anticardiolipin antibodies Elevated serum homocysteine Heparin-induced thrombocytopenia Other congenital or acquired thrombophilia Stroke (< 1 month) Elective arthroplasty Hip, pelvis, or leg fracture Acute spinal cord injury (< 1 month) Prophylaxis Regimen: Total Risk Factor Score Risk Level Prophylaxis Regimen 0-1 Low Early ambulation 2 Moderate Order ONE of the following: *Sequential Compression Device (SCD) *Heparin 5000 units SQ BID 3-4 Higher Order ONE of the following medications: *Heparin 5000 units SQ TID *Enoxaparin/Lovenox 40 mg SQ daily (WT < 150 kg, CrCl > 30 mL/min) *Enoxaparin/Lovenox 30 mg SQ daily (WT < 150 kg, CrCl > 10-29 mL/min) *Enoxaparin/Lovenox 30 mg SQ BID (WT < 150 kg, CrCl > 30 mL/min) AND/OR *Sequential Compression Device (SCD) 5 or more Highest Order ONE of the following medications: *Heparin 5000 units SQ TID (Preferred with Epidurals) *Enoxaparin/Lovenox 40 mg SQ daily (WT < 150 kg, CrCl > 30 mL/min) *Enoxaparin/Lovenox 30 mg SQ daily (WT < 150 kg, CrCl > 10-29 mL/min) *Enoxaparin/Lovenox 30 mg SQ BID (WT < 150 kg, CrCl > 30 mL/min) AND *Sequential Compression Device (SCD) Assessment and Plan - Plan A/P - questionable cerebral bleed MRI brain with questionable small parenchymal bleed vs artifact hold Coumadin for now- will consult neurosurgery. of note case has been d/w neurosurgery by ER. -metastatic breast cancer with possible metastasis to the brain consult Oncology ( ). -reported fever at home- although the patient is currently afebrile- received IV antibiotics in ER- will monitor the blood cultures and temps. -pneumothorax- patient had recent lung biopsy- keep on oxygen to keep O2 sat > 90%- will consult pulmonary. -history of valve replacement- hold Coumadin for now till neurosurgery evaluation- will consult Cardiology ( ) -renal insufficiency with unknown duration- will monitor. -hypertension; resume home meds- will monitor BP and adjust the regimen as needed. -hypokalemia; will replace. -DVT prophylaxis with SCD's Discussed Condition With: ER and the patient.
[2018-05-18] MEDS ORDERED: Acetaminophen 325 MG Tablet PO PRN (18:56)
[2018-05-18] MEDS: Sod Chloride 0.9% Inj 1,000 ML IV.SIG SCH (19:30)
[2018-05-19 05:24] LABS: Baso # (Auto) 0.1 th/mm3 (0.0-0.2); Baso % (Auto) 0.9 % (0.0-2.0); Eos # (Auto) 0.2 th/mm3 (0.0-0.4); Eos % (Auto) 2.4 % (0.0-4.0); Hematocrit 27.3 % (35.0-46.0); Hemoglobin 9.1 gm/dL (11.6-15.3); Lymph # (Auto) 0.8 th/mm3 (1.0-4.8); Mean Corpuscular HGB Conc 33.2 % (32.0-36.0); Mean Corpuscular Volume 96.4 fL (80.0-100.0); Mean Platelet Volume 9.1 fL (7.0-11.0); Mono # (Auto) 0.7 th/mm3 (0.0-0.9); Mono % (Auto) 9.1 % (0.0-8.0); Neut # (Auto) 5.6 th/mm3 (1.8-7.7); Neut % (Auto) 76.6 % (16.0-70.0); Platelet Count 263 th/mm3 (150-450); Red Blood Count 2.84 mil/mm3 (4.00-5.30); Red Cell Distribution Width 15.2 % (11.6-17.2); White Blood Count 7.3 th/mm3 (4.0-11.0)
[2018-05-19 05:33] LABS: INR 1.7 Ratio; Prothrombin Time 17.6 sec (9.8-11.6)
[2018-05-19 05:45] LABS: Calcium 10.3 mg/dL (8.5-10.1); Carbon Dioxide 24.6 meq/L (21.0-32.0); Potassium 3.8 meq/L (3.5-5.1)
--- NOTE | 2018-05-19 08:01 | P.CONNS ---
History of Present Illness Primary Care Provider: UNKNOWN Chief Complaint: headache History of Present Illness: Ms. Carson is an 83 y/o female with history of metastatic breast cancer (lumbar spine) originally diagnosed in 2015. She presented with headaches and sought medical attention. CT of the head was performed demonstrating a subtle right frontal hyperdensity concerning for intracranial hemorrhage versus artifact. Of note, she is on coumadin for an aortic valve replacement. She underwent a MRI of the brain that demonstrated susceptibility in the same region of concern on the head CT, increasing the likelihood that it is in fact hemorrhage. MRI was also positive for contrast enhancing lesions in the calvarium concerning for metastatic disease. Review of Systems All other systems reviewed negative except as stated in HPI [facility] - History History Provided By: Patient - Medical History Medical History: Medical History (Last Updated 05/19/18 @ 00:51 by Ivelisse William) Breast cancer Cataract GERD (gastroesophageal reflux disease) Gallbladder disease HTN (hypertension) High cholesterol History of hysterectomy Port catheter in place - Surgical History Surgical History: Surgical History (Last Updated 05/19/18 @ 00:52 by Ivelisse William) History of colon resection History of heart valve replacement S/P hip replacement - Family History Family History: Family History (Last Reviewed 05/18/18 @ 18:49 by Doc Hurtado MD) Other Brain aneurysm - Tobacco History Second Hand Smoke Exposure: No Tobacco Use In Past 30 Days: No Smoking Status: Never smoker Tobacco Type: Cigarettes - Alcohol History How Often Do You Have a Drink Containing Alcohol: Never - Substance Use History Substance History: No History of Abuse - Travel History Recent Travel in the [place] Within the Last 8 Weeks: No Recent Travel Out of the Country Within the Last 8 Weeks: No - Immunization History Tetanus Immunization: Unsure Hx Influenza Vaccine This Season: No Medications and Allergies Active Medications: Active Medications Acetaminophen (Tylenol) 650 mg PO Q4H PRN PRN Reason: fever/pain 1-3 Hydrocodone Bitart/Acetaminophen ([place] 5/325) 1 tab PO Q4H PRN PRN Reason: pain 4-10 Last Admin: 05/19/18 03:48 Dose: 1 tab Hydrochlorothiazide (Microzide) 12.5 mg PO DAILY FAVIO Sodium Chloride (Ns Inj) 1,000 mls @ 50 mls/hr IV.SIG .Q20H FAVIO Last Admin: 05/18/18 19:30 Dose: 50 mls/hr Losartan Potassium (Cozaar) 100 mg PO DAILY FAVIO Ondansetron HCl (Zofran Inj) 4 mg IV.PUSH Q6H PRN PRN Reason: NAUSEA OR VOMITING Last Admin: 05/19/18 01:23 Dose: 4 mg Pravastatin Sodium (Pravachol) 20 mg PO DAILY FAVIO Sodium Chloride (Ns Flush) 2 ml IV.FLUSH PRN PRN PRN Reason: FLUSH AFTER USING IV ACCESS Allergies Allergy/AdvReac Type Severity Reaction Status Date / Time No Known Allergies Allergy Unverified 05/18/18 12:34 Home Medications Medication Instructions Recorded Confirmed Type capecitabine 1,000 mg PO Q12H 05/18/18 05/18/18 History capecitabine 500 mg PO DAILY 05/18/18 05/18/18 History hydrochlorothiazide 12.5 mg PO DAILY 05/18/18 05/18/18 History lisinopril 05/18/18 History losartan 100 mg PO DAILY 05/18/18 05/18/18 History ondansetron HCl [Zofran] 4 mg PO Q6HR 05/18/18 05/19/18 History oxycodone-acetaminophen [Percocet] 1 tab PO Q4-6H PRN 05/18/18 05/18/18 History pantoprazole 40 mg PO DAILY 05/18/18 05/18/18 History pravastatin 20 mg PO DAILY 05/18/18 05/18/18 History vit D3-folic [id number] 05/18/18 History warfarin 2.5 mg PO Q OTHER DAY 05/18/18 05/18/18 History warfarin [Coumadin] 1.25 mg PO EVERY OTHER DAY 05/18/18 05/18/18 History Exam Vital signs: Vital Signs 05/18/18 11:08 05/18/18 11:54 05/18/18 15:19 Temperature 97.9 F 98.8 F Pulse Rate 83 81 75 Respiratory Rate 17 16 16 Blood Pressure 140/76 186/81 H 159/70 H Pulse Oximetry 98 98 98 05/18/18 15:25 05/18/18 17:32 05/18/18 17:34 Temperature 98.9 F Pulse Rate 79 Respiratory Rate 18 16 16 Blood Pressure 142/64 H Pulse Oximetry 96 05/18/18 19:30 05/18/18 23:00 05/19/18 00:02 Temperature 97.9 F Pulse Rate 74 76 72 Respiratory Rate 18 16 Blood Pressure 144/72 H 149/57 H Pulse Oximetry 98 97 05/19/18 01:00 05/19/18 04:00 05/19/18 04:18 Temperature 98.3 F 97.6 F Pulse Rate 72 75 80 Respiratory Rate 16 18 Blood Pressure 165/81 H 153/77 H Pulse Oximetry 96 96 Intake & Output 05/18/18 05/19/18 05/19/18 18:59 06:59 18:59 Intake Total 2350 / 2350 120 / 120 Output Total 625 / 625 Balance 2350 / 2350 -505 / -505 Weight 58.967 kg 60.8 kg Intake: IV 2350 / 2350 Oral 120 / 120 Output: Urine 625 / 625 Other: Date of Last Bowel Movement 05/18/18 Weight On Admission 60.8 kg Narrative: Opens eyes to voice PERRL EOMI Mild right facial droop Mild dysarthria Right deltoid 4/5, otherwise 5/5 strength throughout Sensation intact Results - Laboratory Findings CBC and BMP: 05/19/18 03:50 05/19/18 03:50 Abnormal lab findings: Abnormal Labs 05/18/18 05/18/18 05/18/18 13:15 13:15 14:40 RBC 2.64 L Hgb 8.6 L Hct 25.3 L Neut % (Auto) 77.4 H [place] % (Auto) 8.6 H Lymph # (Auto) 0.6 L PT 20.4 H Potassium 3.3 L Creatinine 1.32 H Estimated GFR 39 L Calcium 10.4 H AST 40 H Alkaline Phosphatase 192 H Total Protein 6.3 L Albumin 2.9 L Urine Bacteria Urine Mucus 05/18/18 05/19/18 05/19/18 15:20 03:50 03:50 RBC 2.84 L Hgb 9.1 L Hct 27.3 L Neut % (Auto) 76.6 H [place] % (Auto) 9.1 H Lymph # (Auto) 0.8 L PT 17.6 H Potassium Creatinine Estimated GFR Calcium AST Alkaline Phosphatase Total Protein Albumin Urine Bacteria Rare H Urine Mucus Few H 05/19/18 03:50 RBC Hgb Hct Neut % (Auto) [place] % (Auto) Lymph # (Auto) PT Potassium Creatinine 1.38 H Estimated GFR 37 L Calcium 10.3 H AST Alkaline Phosphatase Total Protein Albumin Urine Bacteria Urine Mucus Assessment and Plan - Plan 83 y/o female with hyperdensity on CT concerning for small intracranial hemorrhage, MR with findings concerning for metastatic deposits in the calvarium. - No neurosurgical intervention indicated. Hold coumadin given concern for intracranial hemorrhage. - Repeat MRI brain in 2 weeks to evaluate right frontal area (if resolving, then most likely consistent with hemorrhage) - PET/CT performed at outside facility 1 month ago. Recommend repeat to assess calvarial lesions and obtain prior imaging for comparison. - Oncology consultation.
--- NOTE | 2018-05-19 09:05 | P.CON ---
History of Present Illness Service: Hematology/oncology Consult date: 05/19/18 Requesting Physician: Doc Hurtado Reason for Consult: Metastatic breast cancer. Primary Care Provider: UNKNOWN Chief Complaint: Headache, tongue swelling, lower back pain. History of Present Illness: Ms. Carson is An 83-year-old female who is well-known to me from my outpatient practice and [facility], she is primarily followed by myself at my [place] office. Ms. 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 She had T2N1 disease. She was treated with adjuvant systemic therapy after undergoing lumpectomy with 4 cycles of docetaxel and Cytoxan. In July 2017 she developed sternal chest pain and back pain, imaging studies revealed widespread metastases as well as visceral metastases i.e. to her lung. She underwent needle biopsy which confirmed the presence of metastatic adenocarcinoma consistent with lung primary, the tumor was estrogen receptor positive, HER-2 amplification studies could not be performed. In August 2017 the patient was initiated on combination systemic therapy with anastrozole and Ibrance. She had difficulty tolerating this combination and had rapid progression, she was subsequently transitioned to Faslodex and Ibrance. She progressed on this and was transitioned to Verzenio and Faslodex. For management of her bone metastases she has required ORIF of her right humerus, right femur along with radiation to various areas which are symptomatic , she is also been on either Zometa or Xgeva. Unfortunately, her disease is progressed very rapidly, the temp of progression is concerning for her having converted to HER-2 amplified status. A week and a half ago she underwent CT-guided biopsy of an enlarging lung mass, HER-2 by IHC was indeterminate/equivocal. HER-2 amplification by FISH is pending at this time. Last week she was initiated on low-dose Xeloda at 1000 mg twice daily, she was advised 7 days on 7 days off by her [facility] breast oncologist; Dr. Marquez. The patient reports having developed swelling of the right side of her tongue after 3 doses. She also developed cough producing thick green phlegm associated with fever. It should be noted that the patient was seen by me last week, she was hospitalized last week at [facility] for symptoms of uncontrolled pain. Review of Systems Constitutional: Reports anorexia, Reports body ache(s), Reports fever(s), Reports headache(s), Reports lack of energy, Reports malaise, Denies chills, Denies daytime sleepiness, Denies night sweats, Denies weakness, Denies weight gain, Denies weight loss Eyes: Denies blind spots, Denies change in vision Ears, Nose, Mouth, and Throat: Reports change in voice, Reports headache(s), Denies abnormal hearing, Denies nasal congestion, Denies sore throat Cardiovascular: Reports chest pain, Reports shortness of breath, Denies shortness of breath when lying down Respiratory: Reports change in phlegm color (Green phlegm production.), Reports cough, Denies chest congestion, Denies shortness of breath Gastrointestinal: Denies abdominal pain, Denies black, tarry stools, Denies bloating, Denies change in stools, Denies coffee ground vomit, Denies loose stools, Denies nausea, Denies pain with swallowing, Denies vomiting Genitourinary: Reports absent period, Denies abnormal periods Musculoskeletal: Reports body aches, Reports stiffness, Denies abnormal walking , Denies muscle cramps, Denies muscle weakness Skin/Breast: Denies change in skin color Neurologic: Reports headache(s), Denies abnormal hearing, Denies abnormal speech Psychiatric: Reports anxiety, Reports depression, Denies abnormal sleep pattern PMFSH - History History Provided By: Patient - Medical History Medical History: Medical History (Last Updated 05/19/18 @ 08:59 by Nathan Mckeon MD) Bone metastasis Breast cancer Cataract GERD (gastroesophageal reflux disease) Gallbladder disease HTN (hypertension) High cholesterol History of hysterectomy Metastatic breast cancer Port catheter in place - Surgical History Surgical History: Surgical History (Last Updated 05/19/18 @ 00:52 by Ivelisse William) History of colon resection History of heart valve replacement S/P hip replacement - Family History Family History: Family History (Last Reviewed 05/18/18 @ 18:49 by Doc Hurtado MD) Other Brain aneurysm - Social History I have reviewed the patient's Social History: Yes - Tobacco History Second Hand Smoke Exposure: No Tobacco Use In Past 30 Days: No Smoking Status: Never smoker Tobacco Type: Cigarettes - Alcohol History How Often Do You Have a Drink Containing Alcohol: Never - Substance Use History Substance History: No History of Abuse - Travel History Recent Travel in the [place] Within the Last 8 Weeks: No Recent Travel Out of the Country Within the Last 8 Weeks: No - Immunization History Tetanus Immunization: Unsure Hx Influenza Vaccine This Season: No Medications and Allergies Active Medications: Active Medications Acetaminophen (Tylenol) 650 mg PO Q4H PRN PRN Reason: fever/pain 1-3 Hydrocodone Bitart/Acetaminophen ([place] 5/325) 1 tab PO Q4H PRN PRN Reason: pain 4-10 Last Admin: 05/19/18 03:48 Dose: 1 tab Hydrochlorothiazide (Microzide) 12.5 mg PO DAILY FAVIO Sodium Chloride (Ns Inj) 1,000 mls @ 50 mls/hr IV.SIG .Q20H FAVIO Last Admin: 05/18/18 19:30 Dose: 50 mls/hr Losartan Potassium (Cozaar) 100 mg PO DAILY FAVIO Ondansetron HCl (Zofran Inj) 4 mg IV.PUSH Q6H PRN PRN Reason: NAUSEA OR VOMITING Last Admin: 05/19/18 01:23 Dose: 4 mg Pravastatin Sodium (Pravachol) 20 mg PO DAILY FAVIO Sodium Chloride (Ns Flush) 2 ml IV.FLUSH PRN PRN PRN Reason: FLUSH AFTER USING IV ACCESS Allergies Allergy/AdvReac Type Severity Reaction Status Date / Time No Known Allergies Allergy Unverified 05/18/18 12:34 Home Medications Medication Instructions Recorded Confirmed Type capecitabine 1,000 mg PO Q12H 05/18/18 05/18/18 History capecitabine 500 mg PO DAILY 05/18/18 05/18/18 History hydrochlorothiazide 12.5 mg PO DAILY 05/18/18 05/18/18 History lisinopril 05/18/18 History losartan 100 mg PO DAILY 05/18/18 05/18/18 History ondansetron HCl [Zofran] 4 mg PO Q6HR 05/18/18 05/19/18 History oxycodone-acetaminophen [Percocet] 1 tab PO Q4-6H PRN 05/18/18 05/18/18 History pantoprazole 40 mg PO DAILY 05/18/18 05/18/18 History pravastatin 20 mg PO DAILY 05/18/18 05/18/18 History vit D3-folic [id number] 05/18/18 History warfarin 2.5 mg PO Q OTHER DAY 05/18/18 05/18/18 History warfarin [Coumadin] 1.25 mg PO EVERY OTHER DAY 05/18/18 05/18/18 History Physical Exam Vital signs: Vital Signs 05/18/18 11:08 05/18/18 11:54 05/18/18 15:19 Temperature 97.9 F 98.8 F Pulse Rate 83 81 75 Respiratory Rate 17 16 16 Blood Pressure 140/76 186/81 H 159/70 H Pulse Oximetry 98 98 98 05/18/18 15:25 05/18/18 17:32 05/18/18 17:34 Temperature 98.9 F Pulse Rate 79 Respiratory Rate 18 16 16 Blood Pressure 142/64 H Pulse Oximetry 96 05/18/18 19:30 05/18/18 23:00 05/19/18 00:02 Temperature 97.9 F Pulse Rate 74 76 72 Respiratory Rate 18 16 Blood Pressure 144/72 H 149/57 H Pulse Oximetry 98 97 05/19/18 01:00 05/19/18 04:00 05/19/18 04:18 Temperature 98.3 F 97.6 F Pulse Rate 72 75 80 Respiratory Rate 16 18 Blood Pressure 165/81 H 153/77 H Pulse Oximetry 96 96 05/19/18 08:00 Temperature Pulse Rate 84 Respiratory Rate Blood Pressure Pulse Oximetry Intake & Output 05/18/18 05/19/18 05/19/18 18:59 06:59 18:59 Intake Total 2350 / 2350 120 / 120 Output Total 625 / 625 Balance 2350 / 2350 -505 / -505 Weight 58.967 kg 60.8 kg Intake: IV 2350 / 2350 Oral 120 / 120 Output: Urine 625 / 625 Other: Date of Last Bowel Movement 05/18/18 Weight On Admission 60.8 kg - Constitutional no acute distress - Routine HEENT Exam Head: Present: normocephalic Eye: Present: EOMI, PERRL. Absent: normal accommodation, conjunctival icterus ENT: Present: mucous membranes moist - Routine Neck Exam Present: supple. Absent: lymphadenopathy - Routine Respiratory Exam Present: CTA bilaterally. Absent: accessory muscle use, rales, respiratory distress, rhonchi, stridor, wheezes, crackles, distant breath sounds - Routine Cardiovascular Exam Present: RRR, S1, S2, click (Mechanical click.). Absent: murmur, gallop, rubs, S3, S4 - Routine Abdominal Exam Present: soft - Routine Extremities Exam Present: full ROM. Absent: cyanosis, clubbing, edema - Routine Skin Exam Present: intact - Routine Neurological Exam Present: alert, oriented X3, CN II-XII intact. Absent: sensory deficit, motor deficit - Detailed Neurological Exam: Coma Scale Eye Opening: Spontaneous - Routine Psychiatric Exam Present: normal affect, anxious Assessment and Plan - Plan Ms. Carson is an 83-year-old female with a diagnosis of metastatic breast carcinoma with extensive and known metastatic disease burden to the axial skeleton including the sternum, ribs, cervical, thoracic and lumbar spine as well as her pelvis. She has been on various lines of systemic therapy including adjuvant systemic chemotherapy consisting of docetaxel and Cytoxan in 2014, between August 2017 and now she has been on anastrozole, Ibrance, Faslodex, Verzenio. She has been on medication for management of her bony metastases which consists of either Xgeva or Zometa. Most recently she was initiated on palliative systemic therapy consisting of Capecitabine 1000 mg twice daily; the plan was to treat her for 7 days and give her 7 days off. She started the treatment on Saturday, by her third dose on Saturday she had developed tongue swelling and pain. She also had fevers associated with a cough producing green phlegm. The patient was last seen by me at my [facility] office ([facility]) on Saturday as an inpatient consultation. She was in fact sent by me from my office to the ER for management of severe pain. 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 Recommendations: 1. Metastatic breast carcinoma: Her-2/oleksandr amplification studies on FISH are pending at this time. I have requested the results from [facility]. If the patient is negative for HER-2 amplification she will be a candidate to resume Capecitabine. If she is HER-2 amplified, I would recommend transitioning her to weekly Taxol in combination with Herceptin. 2. Pain control: With opioid analgesics. 3. Bony metastases: She is on either Zometa or Xgeva. I will verify with my office and document the specific medication she has been on and the most recent dosing. 4. Symptomatic bony metastases: She has had numerous areas treated with palliative radiation, she is also undergone open reduction and internal fixation for management of pathologic fractures or impending pathologic fractures. 5. Anticoagulation for a mechanical aortic valve: She has been on therapeutic anticoagulation with Lovenox with bridging to warfarin. She was taken off of warfarin briefly about a week and a half ago social asked to undergo a safe CT- guided needle biopsy of 1 of her lung masses. I would recommend continuation of anticoagulation once cleared by neurosurgery. Oncology will follow along with you.
[2018-05-19 10:41] VITALS: RESP 16
--- NOTE | 2018-05-19 13:19 | P.PN ---
Subjective Interval history: Nursing reports the patient is having intermittent nausea and pain, patient seems to complain most of her pain being in her back. Patient says she lives alone. Says she has trouble walking distances with the inside of her home. Physical Exam Vital signs: Vital Signs 05/18/18 15:19 05/18/18 15:25 05/18/18 17:32 Temperature 98.8 F Pulse Rate 75 Respiratory Rate 16 18 16 Blood Pressure 159/70 H Pulse Oximetry 98 05/18/18 17:34 05/18/18 19:30 05/18/18 23:00 Temperature 98.9 F 97.9 F Pulse Rate 79 74 76 Respiratory Rate 16 18 16 Blood Pressure 142/64 H 144/72 H 149/57 H Pulse Oximetry 96 98 97 05/19/18 00:02 05/19/18 01:00 05/19/18 04:00 Temperature 98.3 F 97.6 F Pulse Rate 72 72 75 Respiratory Rate 16 18 Blood Pressure 165/81 H 153/77 H Pulse Oximetry 96 96 05/19/18 04:18 05/19/18 08:00 05/19/18 08:30 Temperature 98.3 F Pulse Rate 80 84 85 Respiratory Rate 16 Blood Pressure Pulse Oximetry 98 05/19/18 11:45 05/19/18 12:29 Temperature 98.8 F Pulse Rate 71 73 Respiratory Rate 16 Blood Pressure 121/65 Pulse Oximetry 95 Intake & Output 05/18/18 05/19/18 05/19/18 18:59 06:59 18:59 Intake Total 2350 / 2350 120 / 120 Output Total 625 / 625 Balance 2350 / 2350 -505 / -505 Weight 58.967 kg 60.8 kg 58.9 kg Intake: IV 2350 / 2350 Oral 120 / 120 Output: Urine 625 / 625 Other: Date of Last Bowel Movement 05/18/18 Weight On Admission 60.8 kg Narrative: Clear lungs bilaterally, unlabored breathing 4/5 proximal upper and lower extremity strength bilaterally Results - Labs CBC & Chem 7: 05/19/18 03:50 05/19/18 03:50 Laboratory Results - last 24 hr 05/18/18 05/18/18 05/18/18 13:15 13:15 13:15 WBC 6.2 RBC 2.64 L Hgb 8.6 L Hct 25.3 L MCV 95.9 MCH 32.5 MCHC 33.9 RDW 14.8 Plt Count 224 MPV 8.3 Prelim Diff (Auto) Slide review pending Neut % (Auto) 77.4 H Lymph % (Auto) 9.9 [place] % (Auto) 8.6 H Eos % (Auto) 2.9 Baso % (Auto) 1.2 Neut # (Auto) 4.8 Lymph # (Auto) 0.6 L [place] # (Auto) 0.5 Eos # (Auto) 0.2 Baso # (Auto) 0.1 WBC Differential . Diff Scan Auto diff confirmed Differential Comment . PT INR Sodium 139 Potassium 3.3 L Chloride 106 Carbon Dioxide 24.7 Anion Gap 8 BUN 13 Creatinine 1.32 H Estimated GFR 39 L Random Glucose 91 Lactic Acid 0.9 Calcium 10.4 H Total Bilirubin 0.5 AST 40 H ALT 17 Alkaline Phosphatase 192 H Total Protein 6.3 L Albumin 2.9 L Urine Color Urine Clarity Urine pH Ur Specific [place] Urine Protein Urine Glucose (UA) Urine Ketones Urine Occult Blood Urine Nitrate Urine Bilirubin Urine Urobilinogen Ur Leukocyte Esterase Urine RBC Urine WBC Ur Squamous Epith Cells Ur Transition Epith Cell Ur Renal Epithelial Cell Urine Bacteria Urine Mucus Micro UA Comment Ur Microscopic Review Urine Culture Comments 05/18/18 05/18/18 05/19/18 14:40 15:20 03:50 WBC RBC Hgb Hct MCV MCH MCHC RDW Plt Count MPV Prelim Diff (Auto) Neut % (Auto) Lymph % (Auto) [place] % (Auto) Eos % (Auto) Baso % (Auto) Neut # (Auto) Lymph # (Auto) [place] # (Auto) Eos # (Auto) Baso # (Auto) WBC Differential Diff Scan Differential Comment PT 20.4 H 17.6 H INR 2.0 1.7 Sodium Potassium Chloride Carbon Dioxide Anion Gap BUN Creatinine Estimated GFR Random Glucose Lactic Acid Calcium Total Bilirubin AST ALT Alkaline Phosphatase Total Protein Albumin Urine Color Straw Urine Clarity Clear Urine pH 5.0 Ur Specific [place] 1.006 Urine Protein Negative Urine Glucose (UA) Negative Urine Ketones Negative Urine Occult Blood Negative Urine Nitrate Negative Urine Bilirubin Negative Urine Urobilinogen Less than 2 Ur Leukocyte Esterase Negative Urine RBC Less than 1 Urine WBC 4 Ur Squamous Epith Cells <1 Ur Transition Epith Cell 1 Ur Renal Epithelial Cell <1 Urine Bacteria Rare H Urine Mucus Few H Micro UA Comment Culture not ind Ur Microscopic Review Not Reportable Urine Culture Comments Culture not ind 05/19/18 05/19/18 03:50 03:50 WBC 7.3 RBC 2.84 L Hgb 9.1 L Hct 27.3 L MCV 96.4 MCH 32.0 MCHC 33.2 RDW 15.2 Plt Count 263 MPV 9.1 Prelim Diff (Auto) Slide review pending Neut % (Auto) 76.6 H Lymph % (Auto) 11.0 Linn % (Auto) 9.1 H Eos % (Auto) 2.4 Baso % (Auto) 0.9 Neut # (Auto) 5.6 Lymph # (Auto) 0.8 L Linn # (Auto) 0.7 Eos # (Auto) 0.2 Baso # (Auto) 0.1 WBC Differential . Diff Scan Auto diff confirmed Differential Comment . PT INR Sodium 140 Potassium 3.8 Chloride 106 Carbon Dioxide 24.6 Anion Gap 9 BUN 12 Creatinine 1.38 H Estimated GFR 37 L Random Glucose 79 Lactic Acid Calcium 10.3 H Total Bilirubin AST ALT Alkaline Phosphatase Total Protein Albumin Urine Color Urine Clarity Urine pH Ur Specific [place] Urine Protein Urine Glucose (UA) Urine Ketones Urine Occult Blood Urine Nitrate Urine Bilirubin Urine Urobilinogen Ur Leukocyte Esterase Urine RBC Urine WBC Ur Squamous Epith Cells Ur Transition Epith Cell Ur Renal Epithelial Cell Urine Bacteria Urine Mucus Micro UA Comment Ur Microscopic Review Urine Culture Comments Microbiology 05/18/18 13:10 Blood - Peripheral Aerobic Blood Culture - Preliminary No growth in 1 day 05/18/18 13:10 Blood - Peripheral Anaerobic Blood Culture - Preliminary No growth in 1 day 05/18/18 13:15 Blood - Peripheral Aerobic Blood Culture - Preliminary No growth in 1 day 05/18/18 13:15 Blood - Peripheral Anaerobic Blood Culture - Preliminary No growth in 1 day - Imaging Impressions Chest X-Ray 05/18/18 12:35 CONCLUSION: Metastatic disease to the chest and left lower lobe consolidation suspected. Head CT 05/18/18 12:57 The examination demonstrates patchy hypodensity in the bilateral periventricular white matter and centrum semiovale most likely related to chronic microvascular ischemic disease. There is identified in the right frontal cortical/subcortical region on axial image 21 curvilinear high density which may reflect a small amount of parenchymal blood. No surrounding edema. No mass effect. CONCLUSION: 1. Patchy white matter disease. This is most likely chronic in nature. 2. Indeterminate area of hypodensity in the right frontal cortical/subcortical white matter may reflect a sliver-like area of hemorrhage. Given the history of malignancy consider MRI of the brain with and without contrast for further assessment. . Chest CT 05/18/18 13:39 CONCLUSION: 1. Metastatic disease to the chest with bilateral pulmonary nodules, bilateral effusions left greater than right. 2. Ascending aortic aneurysm. 3. Indeterminate hypervascular liver lesion. 4. Cholelithiasis. 5. There is a right-sided pneumothorax. Foot X-Ray 05/18/18 13:52 CONCLUSION: Decreased bone density. Calcaneal spur. Head MRI 05/18/18 14:27 CONCLUSION: 1. The area of abnormal increased density on CT has corresponding blooming artifact on susceptibility weighted images. This can be seen with a small parenchymal bleed versus artifact related to calcification from previous insult. A short interval follow-up CT in 2 weeks' time may be of benefit to assess for resolution of this finding. 2. Additional abnormalities on this examination include an extra-axial mass along the right frontal falx cerebri measuring up to 1 cm. The differential diagnosis includes a meningioma along the falx versus a metastatic deposit. 3. The pituitary is heterogeneous and there is thickening of the infundibular stalk. 4. Abnormal marrow replacement and enhancement is seen within the skull base as described above. Metastatic disease would be a leading consideration. Assessment and Plan - Plan 83-year-old white female admitted for possible intracranial bleed. Is on CIC, stable hemodynamically. Tolerating some p.o. intake. INR is 1.7. today -Headache Possible brain metastasis versus small parenchymal bleed versus artifact. Oncology does not feel that this is a bleed. Awaiting to hear back from neurosurgery as to whether it is worth holding the patient's anticoagulation ( which she gets for her mechanical valves). Neurosurgery recommends nonetheless repeat imaging in about 2 weeks. -metastatic breast cancer with possible metastasis to the brain consult Oncology ( ). Appreciate input -So far temperature is afebrile, blood cultures are negative -pneumothorax- patient had recent lung biopsy- Pulmonology following -history of valve replacement- hold Coumadin for now till neurosurgery evaluation- cardiology consulting. INR 1.7 today -renal insufficiency with unknown duration- will monitor. -hypertension home meds -hypokalemia; will replace. -DVT prophylaxis with SCD's
--- NOTE | 2018-05-19 13:55 | P.CONCA ---
History of Present Illness Service: Cardiology Reason for Consult: Possible bleed Primary Care Provider: UNKNOWN Chief Complaint: Headache, tongue swelling, lower back pain. History of Present Illness: Pleasant 83 year old female well known to our practice with a significant past cardiac history of aortic valve replacement with a mechanical #23 Carbomedics model # A5-023, placed in 2000 anticoagulated with Coumadin. 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 She was recently started on low dose Xeloda and follows regularly with dr. Mckeon and [facility]. 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 Her anticoagulants are currently on hold. Review of Systems Constitutional: Reports anorexia, Reports body ache(s), Reports headache(s), Reports lack of energy, Reports weight loss Ears, Nose, Mouth, and Throat: Reports headache(s), Reports tongue swelling Musculoskeletal: Reports back pain, Reports body aches, Reports joint pain, Reports limited joint movement, Reports muscle weakness Neurologic: Reports abnormal walking, Reports headache(s), Reports localized weakness PMFSH - History History Provided By: Patient - Medical History Medical History: Medical History (Last Updated 05/19/18 @ 13:48 by SHEILA Adkins) Aortic stenosis Bone metastasis Breast cancer Cataract GERD (gastroesophageal reflux disease) Gallbladder disease HTN (hypertension) High cholesterol History of hysterectomy Metastatic breast cancer Port catheter in place - Surgical History Surgical History: Surgical History (Last Reviewed 05/19/18 @ 14:21 by Shauna Wisdom) History of colon resection History of heart valve replacement S/P hip replacement - Family History Family History: Family History (Last Reviewed 05/18/18 @ 18:49 by Doc Hurtado MD) Other Brain aneurysm - Tobacco History Second Hand Smoke Exposure: No Tobacco Use In Past 30 Days: No Smoking Status: Never smoker Tobacco Type: Cigarettes - Alcohol History How Often Do You Have a Drink Containing Alcohol: Never - Substance Use History Substance History: No History of Abuse - Travel History Recent Travel in the [place] Within the Last 8 Weeks: No Recent Travel Out of the Country Within the Last 8 Weeks: No - Immunization History Tetanus Immunization: Unsure Hx Influenza Vaccine This Season: No Medications and Allergies Allergies Allergy/AdvReac Type Severity Reaction Status Date / Time No Known Allergies Allergy Unverified 05/18/18 12:34 Home Medications Medication Instructions Recorded Confirmed Type capecitabine 1,000 mg PO Q12H 05/18/18 05/18/18 History capecitabine 500 mg PO DAILY 05/18/18 05/18/18 History hydrochlorothiazide 12.5 mg PO DAILY 05/18/18 05/18/18 History lisinopril 05/18/18 History losartan 100 mg PO DAILY 05/18/18 05/18/18 History ondansetron HCl [Zofran] 4 mg PO Q6HR 05/18/18 05/19/18 History oxycodone-acetaminophen [Percocet] 1 tab PO Q4-6H PRN 05/18/18 05/18/18 History pantoprazole 40 mg PO DAILY 05/18/18 05/18/18 History pravastatin 20 mg PO DAILY 05/18/18 05/18/18 History vit D3-folic [id number] 05/18/18 History warfarin 2.5 mg PO Q OTHER DAY 05/18/18 05/18/18 History warfarin [Coumadin] 1.25 mg PO EVERY OTHER DAY 05/18/18 05/18/18 History Active Medications: Active Medications Acetaminophen (Tylenol) 650 mg PO Q4H PRN PRN Reason: fever/pain 1-3 Hydrocodone Bitart/Acetaminophen ([place] 5/325) 1 tab PO Q4H PRN PRN Reason: pain 4-10 Last Admin: 05/19/18 08:49 Dose: 1 tab Hydrochlorothiazide (Microzide) 12.5 mg PO DAILY [facility] Last Admin: 05/19/18 08:34 Dose: 12.5 mg Sodium Chloride (Ns Inj) 1,000 mls @ 50 mls/hr IV.SIG .Q20H [facility] Last Admin: 05/18/18 19:30 Dose: 50 mls/hr Lidocaine HCl (Lidoderm 5% Patch.12 Hr) 1 patch T-DERMAL DAILY [facility] Losartan Potassium (Cozaar) 100 mg PO DAILY [facility] Last Admin: 05/19/18 08:34 Dose: 100 mg Ondansetron HCl (Zofran Inj) 4 mg IV.PUSH Q6H PRN PRN Reason: NAUSEA OR VOMITING Last Admin: 05/19/18 08:31 Dose: 4 mg Patch Removal (Remove Old Patch) 1 each T-DERMAL HS [facility] Pravastatin Sodium (Pravachol) 20 mg PO DAILY [facility] Last Admin: 05/19/18 08:34 Dose: 20 mg Sodium Chloride (Ns Flush) 2 ml IV.FLUSH PRN PRN PRN Reason: FLUSH AFTER USING IV ACCESS Exam Vital signs: Vital Signs 05/18/18 15:19 05/18/18 15:25 05/18/18 17:32 Temperature 98.8 F Pulse Rate 75 Respiratory Rate 16 18 16 Blood Pressure 159/70 H Pulse Oximetry 98 05/18/18 17:34 05/18/18 19:30 05/18/18 23:00 Temperature 98.9 F 97.9 F Pulse Rate 79 74 76 Respiratory Rate 16 18 16 Blood Pressure 142/64 H 144/72 H 149/57 H Pulse Oximetry 96 98 97 05/19/18 00:02 05/19/18 01:00 05/19/18 04:00 Temperature 98.3 F 97.6 F Pulse Rate 72 72 75 Respiratory Rate 16 18 Blood Pressure 165/81 H 153/77 H Pulse Oximetry 96 96 05/19/18 04:18 05/19/18 08:00 05/19/18 08:30 Temperature 98.3 F Pulse Rate 80 84 85 Respiratory Rate 16 Blood Pressure Pulse Oximetry 98 05/19/18 11:45 05/19/18 12:29 Temperature 98.8 F Pulse Rate 71 73 Respiratory Rate 16 Blood Pressure 121/65 Pulse Oximetry 95 Intake & Output 05/18/18 05/19/18 05/19/18 18:59 06:59 18:59 Intake Total 2350 / 2350 120 / 120 Output Total 625 / 625 Balance 2350 / 2350 -505 / -505 Weight 58.967 kg 60.8 kg 58.9 kg Intake: IV 2350 / 2350 Oral 120 / 120 Output: Urine 625 / 625 Other: Date of Last Bowel Movement 05/18/18 Weight On Admission 60.8 kg - Constitutional no acute distress - Routine HEENT Exam Head: Present: atraumatic Eye: Present: PERRL, normal accommodation ENT: Present: mucous membranes moist - Routine Neck Exam Present: supple - Routine Chest/Breast/Axilla Exam Breast: Present: scars - Routine Respiratory Exam Present: diminished air movement - Routine Cardiovascular Exam Present: RRR - Routine Abdominal Exam Present: soft - Routine Skin Exam Present: intact, scars - Routine Neurological Exam Present: alert, oriented X3 Results 05/19/18 03:50 05/19/18 03:50 Cardiac Enzymes 05/18/18 Range/Units 13:15 AST 40 H (15-37) U/L Coagulation 05/18/18 05/19/18 Range/Units 14:40 03:50 PT 20.4 H 17.6 H (9.8-11.6) sec CBC 05/18/18 05/19/18 Range/Units 13:15 03:50 WBC 6.2 7.3 (4.0-11.0) th/mm3 RBC 2.64 L 2.84 L (4.00-5.30) mil/mm3 Hgb 8.6 L 9.1 L (11.6-15.3) gm/dL Hct 25.3 L 27.3 L (35.0-46.0) % Plt Count 224 263 (150-450) th/mm3 Neut # (Auto) 4.8 5.6 (1.8-7.7) th/mm3 Lymph # (Auto) 0.6 L 0.8 L (1.0-4.8) th/mm3 [place] # (Auto) 0.5 0.7 (0.0-0.9) th/mm3 Eos # (Auto) 0.2 0.2 (0.0-0.4) th/mm3 Baso # (Auto) 0.1 0.1 (0.0-0.2) th/mm3 Comprehensive Metabolic Panel 05/18/18 05/19/18 Range/Units 13:15 03:50 Sodium 139 140 (136-145) meq/L Potassium 3.3 L 3.8 (3.5-5.1) meq/L Chloride 106 106 (98-107) meq/L Carbon Dioxide 24.7 24.6 (21.0-32.0) meq/L BUN 13 12 (7-18) mg/dL Creatinine 1.32 H 1.38 H (0.50-1.00) mg/dL Calcium 10.4 H 10.3 H (8.5-10.1) mg/dL AST 40 H (15-37) U/L ALT 17 (10-53) U/L Alkaline Phosphatase 192 H (45-117) U/L Total Protein 6.3 L (6.4-8.2) g/dL Albumin 2.9 L (3.4-5.0) g/dL Intake and Output 05/18/18 05/19/18 05/19/18 22:59 06:59 14:59 Intake Total 2350 / 2350 120 / 120 Output Total 625 / 625 Balance 2350 / 2350 -505 / -505 Intake: IV 2350 / 2350 Oral 120 / 120 Output: Urine 625 / 625 Other: Date of Last Bowel Movement 05/18/18 Weight 60.8 kg 58.9 kg Weight On Admission 60.8 kg Patient Weight 05/20/18 06:59 Weight 58.9 kg - Imaging and Cardiology Imaging: Impressions Chest X-Ray 05/18/18 12:35 CONCLUSION: Metastatic disease to the chest and left lower lobe consolidation suspected. Head CT 05/18/18 12:57 The examination demonstrates patchy hypodensity in the bilateral periventricular white matter and centrum semiovale most likely related to chronic microvascular ischemic disease. There is identified in the right frontal cortical/subcortical region on axial image 21 curvilinear high density which may reflect a small amount of parenchymal blood. No surrounding edema. No mass effect. CONCLUSION: 1. Patchy white matter disease. This is most likely chronic in nature. 2. Indeterminate area of hypodensity in the right frontal cortical/subcortical white matter may reflect a sliver-like area of hemorrhage. Given the history of malignancy consider MRI of the brain with and without contrast for further assessment. . Chest CT 05/18/18 13:39 CONCLUSION: 1. Metastatic disease to the chest with bilateral pulmonary nodules, bilateral effusions left greater than right. 2. Ascending aortic aneurysm. 3. Indeterminate hypervascular liver lesion. 4. Cholelithiasis. 5. There is a right-sided pneumothorax. Foot X-Ray 05/18/18 13:52 CONCLUSION: Decreased bone density. Calcaneal spur. Head MRI 05/18/18 14:27 CONCLUSION: 1. The area of abnormal increased density on CT has corresponding blooming artifact on susceptibility weighted images. This can be seen with a small parenchymal bleed versus artifact related to calcification from previous insult. A short interval follow-up CT in 2 weeks' time may be of benefit to assess for resolution of this finding. 2. Additional abnormalities on this examination include an extra-axial mass along the right frontal falx cerebri measuring up to 1 cm. The differential diagnosis includes a meningioma along the falx versus a metastatic deposit. 3. The pituitary is heterogeneous and there is thickening of the infundibular stalk. 4. Abnormal marrow replacement and enhancement is seen within the skull base as described above. Metastatic disease would be a leading consideration. Assessment and Plan - Plan Assessment Aortic stenosis Possible small intracranial hemorrhage Cancer HTN Hyperlipidemia Plan -History of Aortic valve replacement with a mechanical #23 Carbomedics model # A5-023, placed in 2000 anticoagulated with Coumadin. -Coumadin is currently on hold due to possible small intracranial hemorrhage. Will need to resume anticoagulants as soon as cleared by neurology. Will place consult to neurology. 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 -BP controlled -On statin We will continue to follow patient closely. Patient is NOT cleared for discharge from cardiology. The patient was seen and evaluated by Dr. Clemons who completed face to face encounter and physical exam and participated in care, management and decision making. The exam, history, and the medical decision-making described in the above note were completed with the assistance of the mid-level provider. I reviewed and agree with the findings presented. I attest that I had a [id number] encounter with the patient on the same day, and personally performed and documented my assessment and findings in the medical record. She will need anticoagulation for AVR which is mechanical. Need ok form either neurology or neurosurgery, risk of clot on mechanical valve vs thromboembolism.
[2018-05-19] MEDS: Lidocaine 5% Patch T-DERMAL SCH (15:44)
[2018-05-19] MEDS: Sod Chloride 0.9% Inj 1,000 ML IV.SIG SCH (19:43)
--- NOTE | 2018-05-19 21:43 | MB ---
cc: Klaus Tobar MD DATE: 05/19/2018 DATE OF CONSULTATION: 03/18/2018 REQUESTING PHYSICIAN: Dr. Hurtado REASON FOR CONSULTATION: Developed a pneumothorax. HISTORY OF PRESENT ILLNESS: Ms. Carson is a pleasant 83-year-old female who has a history of advanced breast carcinoma, status post lumpectomy, chemotherapy and she has extensive metastatic disease. She has been followed by Dr. Nathan Mckeon. The patient was brought to the hospital because of worsening of her headache for the last 2 weeks or so. She also has some swelling in the mouth and the tongue, some difficulty swallowing. No fever, chills. No night sweats, no chest pain. No recent procedure on her chest. LABORATORY WORKUP: Laboratory workup done in the hospital and her CBC showed 7.3, hemoglobin 9.1, hematocrit 27.3, MCV 96, platelet count 263. Sodium 140, potassium 3.8, chloride 106, CO2 24, BUN 12, creatinine 1.38. INR is 1.7. She had a CT scan of the chest done, which shows she has metastatic disease to the chest with bilateral pulmonary nodules, bilateral pleural effusion and has a tiny right-sided pneumothorax. She denies any shortness of breath or chest pain. PAST MEDICAL HISTORY: Significant for history of metastatic breast carcinoma, hypertension, history of aortic valve replacement with a metallic valve. MEDICATIONS: 1. She is currently taking Lidoderm patch. 2. Losartan 100 mg a day. 3. Pravastatin 20 mg a day. 4. Protonix 40 mg a day. ALLERGIES: NO KNOWN DRUG ALLERGIES. SOCIAL HISTORY: She has no smoking or alcohol abuse. She worked for special education. FAMILY HISTORY: She is a , lives alone. She has 5 children, 4 daughters. Her son with astrocytoma. REVIEW OF SYSTEMS: The patient has shortness of breath on exertion. No wheezing. No DVT. No seizure, stroke or epilepsy. PHYSICAL EXAMINATION: GENERAL: Reveals an elderly female, not in any acute distress. VITAL SIGNS: Blood pressure 150/70, heart rate 74, respirations 16, temperature 99.3. HEENT: Unremarkable. NECK: Supple. JVP not raised. CHEST: Quiet. No rhonchi. HEART: S1, S2 normal. She has metallic valve. CARDIOVASCULAR: S1, S2 normal. ABDOMEN: Benign. EXTREMITIES: No edema. IMPRESSION: 1. Small tiny pneumothorax. 2. Metastatic breast carcinoma. 3. Headache. 4. Metallic aortic valve. 5. Hypertension. PLAN: Discussed with the patient. Her pneumothorax is tiny. We will monitor it. Repeat a chest x-ray in the morning. Continue her present medication and ambulate with assistance. Further details depends on the course in the hospital. Thank you, Dr. Hurtado, for this consult. MD MATEO Jacques/enrique/do , 06:12 PM , 06:26 PM
--- NOTE | 2018-05-20 06:48 | XR ---
EXAM DATE: 05/20/2018 6:42 AM EDT AGE/SEX: 83 years / Female INDICATIONS: Short of breath, evaluate for pneumothorax CLINICAL DATA: This is the patient's subsequent encounter. Patient reports that signs and symptoms h ave been present for 3 days and indicates a pain score of 3/10. MEDICAL/SURGICAL HISTORY: Carcinoma, breast. Cardiovascular disease. . heart valve replaced, i [place], nodes removed from left axilla, ORIF right humerus [place] [facility] [place] 1[place] SINGLE AP, 05/18/2018. . FINDINGS: Single AP view the chest. Right-sided [id number]-Fxfy remains in place. Median sternotomy wires and pro sthetic cardiac valve again seen. Bilateral pulmonary nodular densities again seen. Decreased left lo wer lung parenchymal opacity. No evidence of pleural effusion or pneumothorax. CONCLUSION: 1. Decreased left lower lung consolidation versus atelectasis. 2. Bilateral pulmonary nodules again noted. Electronically signed by: Corey Booker MD 05/20/2018 6:47 AM EDT
--- NOTE | 2018-05-20 08:27 | P.PNONC ---
Subjective Interval history: Patient seen and examined, vital signs, labs, medications and mining consultant notes reviewed. Subjectively; patient reports feeling very anxious and tremulous, she reports having headache, lower back pain and pain in her right shoulder. She denies difficulty breathing. She does report having a cough producing scant phlegm, she denies chest pain. She denies nausea vomiting or diarrhea. She tells me her right cheek feels "hot ", the right side of her tongue feels "lumpy ". She on occasion has difficulty chewing and swallowing due to the sensation on the right side of her tongue. Objective Vital Signs/Intake & Output: Vital Signs 05/19/18 08:30 05/19/18 11:45 05/19/18 12:29 Temperature 98.3 F 98.8 F Pulse Rate 85 71 73 Respiratory Rate 16 16 Blood Pressure 121/65 Pulse Oximetry 98 95 05/19/18 15:45 05/19/18 16:00 05/19/18 20:00 Temperature 99.3 F 98.2 F Pulse Rate 74 74 73 Respiratory Rate 16 16 Blood Pressure 150/70 H 138/71 Pulse Oximetry 95 96 05/20/18 00:00 05/20/18 04:00 05/20/18 07:35 Temperature 98.2 F 98 F Pulse Rate 75 77 76 Respiratory Rate 16 16 Blood Pressure 163/79 H 162/81 H Pulse Oximetry 97 97 05/20/18 08:00 Temperature Pulse Rate 85 Respiratory Rate 16 Blood Pressure Pulse Oximetry 96 Intake & Output 05/19/18 05/20/18 05/20/18 18:59 06:59 18:59 Intake Total 1000 / 1000 Output Total 1075 / 1075 500 / 500 Balance -75 / -75 -500 / -500 Weight 58.9 kg 60.6 kg Intake: IV 1000 / 1000 NS Inj 1,000 ML @ 50 mls/hr IV. 1000 / 1000 SIG .Q20H [facility] Rx#:[id number] Output: Urine 1075 / 1075 500 / 500 Other: Date of Last Bowel Movement 05/18/18 Result Diagrams: 05/19/18 03:50 05/19/18 03:50 Culture Results: Microbiology 05/18/18 13:10 Aerobic Blood Culture - Preliminary Blood - Peripheral No growth in 1 day Anaerobic Blood Culture - Preliminary No growth in 1 day 05/18/18 13:15 Aerobic Blood Culture - Preliminary Blood - Peripheral No growth in 1 day Anaerobic Blood Culture - Preliminary No growth in 1 day Imaging Studies: Impressions Chest X-Ray 05/20/18 07:05 CONCLUSION: 1. Decreased left lower lung consolidation versus atelectasis. 2. Bilateral pulmonary nodules again noted. Medications: Active Medications Generic Name Dose Route Start Last Admin Trade Name Freq PRN Reason Stop Dose Admin Hydrocodone Bitart/Acetaminophen 1 tab 05/18/18 18:56 05/20/18 00:18 [place] 5/325 PO 1 tab Q4H PRN Administration pain 4-10 Hydrochlorothiazide 12.5 mg 05/19/18 09:00 05/19/18 08:34 Microzide PO 12.5 mg DAILY [facility] Administration Sodium Chloride 1,000 mls @ 50 mls/hr 05/18/18 19:15 05/19/18 19:43 Ns Inj IV.SIG 50 mls/hr .Q20H [facility] Administration Lidocaine HCl 1 patch 05/19/18 14:00 05/19/18 15:44 Lidoderm 5% Patch.12 Hr T-DERMAL 1 patch DAILY [facility] Administration Losartan Potassium 100 mg 05/19/18 09:00 05/19/18 08:34 Cozaar PO 100 mg DAILY [facility] Administration Ondansetron HCl 4 mg 05/19/18 01:14 05/20/18 06:38 Zofran Inj IV.PUSH 4 mg Q6H PRN Administration NAUSEA OR VOMITING Patch Removal 1 each 05/19/18 21:00 05/20/18 02:01 Remove Old Patch T-DERMAL 1 each HS [facility] Administration Pravastatin Sodium 20 mg 05/19/18 09:00 05/19/18 08:34 Pravachol PO 20 mg DAILY [facility] Administration Objective Remarks: GENERAL: Elderly lady, laying in bed, appears anxious but not acutely distressed , well-nourished, well-developed patient. SKIN: Warm and dry. HEAD: Normocephalic. EYES: No scleral icterus. No injection or drainage. Oral examination: No ulcers noted along the tongue, no erythema, no masses. NECK: Supple, trachea midline. No JVD or lymphadenopathy. LYMPHATIC: No adenopathy. CARDIOVASCULAR: Aortic mechanical click, regular rate and rhythm, S1-S2 no obvious murmurs rubs gallops. RESPIRATORY: Breath sounds equal bilaterally. No accessory muscle use. GASTROINTESTINAL: Abdomen soft, non-tender, nondistended. EXTREMITIES: No cyanosis, or edema. MUSCULOSKELETAL: Adequate muscle tone. NEUROLOGICAL: No obvious focal deficit. Awake, alert, and oriented x3. PSYCHIATRIC: Anxious. Awake, alert and oriented. Assessment/Plan - Plan Ms. Carson is an 83-year-old female with a diagnosis of metastatic breast carcinoma with extensive and known metastatic disease burden to the axial skeleton including the sternum, ribs, cervical, thoracic and lumbar spine as well as her pelvis. She has been on various lines of systemic therapy including adjuvant systemic chemotherapy consisting of docetaxel and Cytoxan in 2014, between August 2017 and now she has been on anastrozole, Ibrance, Faslodex, Verzenio. She has been on medication for management of her bony metastases which consists of either Xgeva or Zometa. Most recently she was initiated on palliative systemic therapy consisting of Capecitabine 1000 mg twice daily; the plan was to treat her for 7 days and give her 7 days off. She started the treatment on Saturday, by her third dose on Saturday she had developed tongue swelling and pain. She also had fevers associated with a cough producing green phlegm. The patient was last seen by me at my [facility] office ([facility]) on Saturday as an inpatient consultation. She was in fact sent by me from my office to the ER for management of severe pain. 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 Recommendations: 1. Metastatic breast carcinoma: Her-2/oleksandr amplification studies on FISH are pending at this time (I checked with [facility] on 05/19/2018 in the afternoon, results were not yet available). I requested pharmacy to allow resumption of outpatient Capecitabine at 1000 mg twice daily. 2. Pain control: With opioid analgesics. 3. Bony metastases: She is on either Zometa or Xgeva. I will verify with my office and document the specific medication she has been on and the most recent dosing. 4. Symptomatic bony metastases: She has had numerous areas treated with palliative radiation, she is also undergone open reduction and internal fixation for management of pathologic fractures or impending pathologic fractures. 5. Anticoagulation for a mechanical aortic valve: Presently on hold due to concern for possible small volume intracranial hemorrhage. Await neurology/ neurosurgery clearance for resumption of anticoagulation. The patient was seen yesterday by her learning and development coordinator. Their notes are reviewed. 6. Anxiety: I have started the patient on Lorazepam 0.5 mg p.o. every 12 hours. The patient is extremely anxious and was unable to sleep, she tells me she is trembling because of her anxiety. Instructions the nurses are to hold this medication for oversedation.
[2018-05-20] MEDS ORDERED: CAPECITABINE 500 MG PO SCH ×2 (09:00→10:15)
[2018-05-20] MEDS: LORazepam 0.5 MG Tablet PO PRN ×2 (09:15→20:08)
[2018-05-20] MEDS: Lidocaine 5% Patch T-DERMAL SCH (09:15)
--- NOTE | 2018-05-20 11:02 | P.PNPL ---
Subjective Interval history: 83 YOWF with metastatic breast ca, AVR,headache CT chest showed small Ptx Denies CP Mild sob with activity CXR today no ptx Physical Exam Vital signs: Vital Signs 05/19/18 11:45 05/19/18 12:29 05/19/18 15:45 Temperature 98.8 F 99.3 F Pulse Rate 71 73 74 Respiratory Rate 16 16 Blood Pressure 121/65 150/70 H Pulse Oximetry 95 95 05/19/18 16:00 05/19/18 20:00 05/20/18 00:00 Temperature 98.2 F 98.2 F Pulse Rate 74 73 75 Respiratory Rate 16 16 Blood Pressure 138/71 163/79 H Pulse Oximetry 96 97 05/20/18 04:00 05/20/18 07:35 05/20/18 08:00 Temperature 98 F Pulse Rate 77 76 85 Respiratory Rate 16 16 Blood Pressure 162/81 H Pulse Oximetry 97 96 Intake & Output 05/19/18 05/20/18 05/20/18 18:59 06:59 18:59 Intake Total 1000 / 1000 Output Total 1075 / 1075 500 / 500 Balance -75 / -75 -500 / -500 Weight 58.9 kg 60.6 kg Intake: IV 1000 / 1000 NS Inj 1,000 ML @ 50 mls/hr IV. 1000 / 1000 SIG .Q20H [facility] Rx#:[id number] Output: Urine 1075 / 1075 500 / 500 Other: Date of Last Bowel Movement 05/18/18 GENERAL: Elderly WF, mild sob SKIN: Warm and dry. HEAD: Normocephalic. EYES: No scleral icterus. No injection or drainage. NECK: Supple, trachea midline. No JVD or lymphadenopathy. CARDIOVASCULAR: Regular rate and rhythm without murmurs, gallops, or rubs. RESPIRATORY: Breath sounds equal bilaterally. No accessory muscle use. GASTROINTESTINAL: Abdomen soft, non-tender, nondistended. MUSCULOSKELETAL: No cyanosis, or edema. BACK: Nontender without obvious deformity. No CVA tenderness. Assessment and Plan - Plan IMPRESSION: 1. Small tiny pneumothorax. 2. Metastatic breast carcinoma. 3. Headache. 4. Metallic aortic valve. 5. Hypertension. PLAN: Supplement 02 Aerosol nebs Lidoderm patch Controll BP DW pt and family at BS
[2018-05-20] MEDS: CAPECITABINE 500 MG PO SCH ×2 (12:59→20:09)
--- NOTE | 2018-05-20 13:28 | P.PNCA ---
Subjective Interval history: patient complains of lightheadedness with change of vertical position. BP stable , a little high. C/O heart racing overnight associated with anxiety. Tele strips reviewed. No tachyarrhythmia. No CP. pending neuro consult. Remains off coumadin. INR yesterday 1.7 Medications and Allergies Active Medications: Active Medications Acetaminophen (Tylenol) 650 mg PO Q4H PRN PRN Reason: fever/pain 1-3 Hydrocodone Bitart/Acetaminophen ([place] 5/325) 1 tab PO Q4H PRN PRN Reason: pain 4-10 Last Admin: 05/20/18 12:58 Dose: 1 tab Hydrochlorothiazide (Microzide) 12.5 mg PO DAILY [facility] [place] Last Admin: 05/20/18 09:14 Dose: 12.5 mg Sodium Chloride (Ns Inj) 1,000 mls @ 50 mls/hr IV.SIG .Q20H [facility] [place] Last Admin: 05/19/18 19:43 Dose: 50 mls/hr Lidocaine HCl (Lidoderm 5% Patch.12 Hr) 1 patch T-DERMAL DAILY [facility] [place] Last Admin: 05/20/18 09:15 Dose: 1 patch Lorazepam (Ativan) 0.5 mg PO Q12H PRN PRN Reason: ANXIETY Last Admin: 05/20/18 09:15 Dose: 0.5 mg Losartan Potassium (Cozaar) 100 mg PO DAILY [facility] [place] Last Admin: 05/20/18 09:15 Dose: 100 mg Ondansetron HCl (Zofran Inj) 4 mg IV.PUSH Q6H PRN PRN Reason: NAUSEA OR VOMITING Last Admin: 05/20/18 06:38 Dose: 4 mg Patch Removal (Remove Old Patch) 1 each T-DERMAL HS [facility] [place] Last Admin: 05/20/18 02:01 Dose: 1 each Pt Own Med : Capecitabine (Xeloda ) 500mg Tablets 0 each PO BID [facility] [place] Stop: 05/23/18 23:59 Last Admin: 05/20/18 12:59 Dose: 1 each Pt Own Med : Capecitabine (Xeloda ) 500mg Tablets 0 each PO BID [facility] [place] Stop: 06/06/18 23:59 Pravastatin Sodium (Pravachol) 20 mg PO DAILY [facility] [place] Last Admin: 05/20/18 09:15 Dose: 20 mg Senna/Docusate Sodium (Caty-Colace) 1 tab PO BID PRN PRN Reason: CONSTIPATION Sodium Chloride (Ns Flush) 2 ml IV.FLUSH PRN PRN PRN Reason: FLUSH AFTER USING IV ACCESS Allergies Allergy/AdvReac Type Severity Reaction Status Date / Time No Known Allergies Allergy Unverified 05/18/18 12:34 Home Medications Medication Instructions Recorded Confirmed Type capecitabine 1,000 mg PO Q12H 05/18/18 05/18/18 History capecitabine 500 mg PO DAILY 05/18/18 05/18/18 History hydrochlorothiazide 12.5 mg PO DAILY 05/18/18 05/18/18 History lisinopril 05/18/18 History losartan 100 mg PO DAILY 05/18/18 05/18/18 History ondansetron HCl [Zofran] 4 mg PO Q6HR 05/18/18 05/19/18 History oxycodone-acetaminophen [Percocet] 1 tab PO Q4-6H PRN 05/18/18 05/18/18 History pantoprazole 40 mg PO DAILY 05/18/18 05/18/18 History pravastatin 20 mg PO DAILY 05/18/18 05/18/18 History vit D3-folic [id number] 05/18/18 History warfarin 2.5 mg PO Q OTHER DAY 05/18/18 05/18/18 History warfarin [Coumadin] 1.25 mg PO EVERY OTHER DAY 05/18/18 05/18/18 History Physical Exam Vital signs: Vital Signs 05/19/18 15:45 05/19/18 16:00 05/19/18 20:00 Temperature 99.3 F 98.2 F Pulse Rate 74 74 73 Respiratory Rate 16 16 Blood Pressure 150/70 H 138/71 Pulse Oximetry 95 96 05/20/18 00:00 05/20/18 04:00 05/20/18 07:35 Temperature 98.2 F 98 F Pulse Rate 75 77 76 Respiratory Rate 16 16 Blood Pressure 163/79 H 162/81 H Pulse Oximetry 97 97 05/20/18 08:00 05/20/18 12:05 05/20/18 12:56 Temperature 99.0 F Pulse Rate 85 94 H 85 Respiratory Rate 16 16 Blood Pressure 179/78 H 153/74 H Pulse Oximetry 96 96 96 Intake & Output 05/19/18 05/20/18 05/20/18 18:59 06:59 18:59 Intake Total 1000 / 1000 Output Total 1075 / 1075 500 / 500 Balance -75 / -75 -500 / -500 Weight 58.9 kg 60.6 kg Intake: IV 1000 / 1000 NS Inj 1,000 ML @ 50 mls/hr IV. 1000 / 1000 SIG .Q20H [facility] Rx#:[id number] Output: Urine 1075 / 1075 500 / 500 Other: Date of Last Bowel Movement 05/18/18 05/18/18 - Constitutional no acute distress - Routine HEENT Exam Head: Present: normocephalic, atraumatic Eye: Present: EOMI ENT: Present: mucous membranes moist - Routine Neck Exam Present: supple - Routine Respiratory Exam Present: CTA bilaterally - Routine Cardiovascular Exam Present: RRR, murmur Comments: right chest port - Routine Abdominal Exam Present: soft - Routine Extremities Exam Comments: no edema - Routine Skin Exam Present: intact - Routine Neurological Exam Present: alert, oriented X3 - Routine Psychiatric Exam Present: normal affect Results 05/19/18 03:50 05/19/18 03:50 Cardiac Enzymes 05/18/18 Range/Units 13:15 AST 40 H (15-37) U/L Coagulation 05/18/18 05/19/18 Range/Units 14:40 03:50 PT 20.4 H 17.6 H (9.8-11.6) sec CBC 05/18/18 05/19/18 Range/Units 13:15 03:50 WBC 6.2 7.3 (4.0-11.0) th/mm3 RBC 2.64 L 2.84 L (4.00-5.30) mil/mm3 Hgb 8.6 L 9.1 L (11.6-15.3) gm/dL Hct 25.3 L 27.3 L (35.0-46.0) % Plt Count 224 263 (150-450) th/mm3 Neut # (Auto) 4.8 5.6 (1.8-7.7) th/mm3 Lymph # (Auto) 0.6 L 0.8 L (1.0-4.8) th/mm3 [place] # (Auto) 0.5 0.7 (0.0-0.9) th/mm3 Eos # (Auto) 0.2 0.2 (0.0-0.4) th/mm3 Baso # (Auto) 0.1 0.1 (0.0-0.2) th/mm3 Comprehensive Metabolic Panel 05/18/18 05/19/18 Range/Units 13:15 03:50 Sodium 139 140 (136-145) meq/L Potassium 3.3 L 3.8 (3.5-5.1) meq/L Chloride 106 106 (98-107) meq/L Carbon Dioxide 24.7 24.6 (21.0-32.0) meq/L BUN 13 12 (7-18) mg/dL Creatinine 1.32 H 1.38 H (0.50-1.00) mg/dL Calcium 10.4 H 10.3 H (8.5-10.1) mg/dL AST 40 H (15-37) U/L ALT 17 (10-53) U/L Alkaline Phosphatase 192 H (45-117) U/L Total Protein 6.3 L (6.4-8.2) g/dL Albumin 2.9 L (3.4-5.0) g/dL Intake and Output 05/19/18 05/20/18 05/20/18 22:59 06:59 14:59 Intake Total 1000 / 1000 Output Total 1375 / 1375 200 / 200 Balance -375 / -375 -200 / -200 Intake: IV 1000 / 1000 NS Inj 1,000 ML @ 50 mls/hr IV. 1000 / 1000 SIG .Q20H [facility] [place] Rx#:[id number] Output: Urine 1375 / 1375 200 / 200 Other: Date of Last Bowel Movement 05/18/18 Weight 60.6 kg - Imaging and Cardiology Imaging: Impressions Chest X-Ray 05/18/18 12:35 CONCLUSION: Metastatic disease to the chest and left lower lobe consolidation suspected. Head CT 05/18/18 12:57 The examination demonstrates patchy hypodensity in the bilateral periventricular white matter and centrum semiovale most likely related to chronic microvascular ischemic disease. There is identified in the right frontal cortical/subcortical region on axial image 21 curvilinear high density which may reflect a small amount of parenchymal blood. No surrounding edema. No mass effect. CONCLUSION: 1. Patchy white matter disease. This is most likely chronic in nature. 2. Indeterminate area of hypodensity in the right frontal cortical/subcortical white matter may reflect a sliver-like area of hemorrhage. Given the history of malignancy consider MRI of the brain with and without contrast for further assessment. . Chest CT 05/18/18 13:39 CONCLUSION: 1. Metastatic disease to the chest with bilateral pulmonary nodules, bilateral effusions left greater than right. 2. Ascending aortic aneurysm. 3. Indeterminate hypervascular liver lesion. 4. Cholelithiasis. 5. There is a right-sided pneumothorax. Foot X-Ray 05/18/18 13:52 CONCLUSION: Decreased bone density. Calcaneal spur. Head MRI 05/18/18 14:27 CONCLUSION: 1. The area of abnormal increased density on CT has corresponding blooming artifact on susceptibility weighted images. This can be seen with a small parenchymal bleed versus artifact related to calcification from previous insult. A short interval follow-up CT in 2 weeks' time may be of benefit to assess for resolution of this finding. 2. Additional abnormalities on this examination include an extra-axial mass along the right frontal falx cerebri measuring up to 1 cm. The differential diagnosis includes a meningioma along the falx versus a metastatic deposit. 3. The pituitary is heterogeneous and there is thickening of the infundibular stalk. 4. Abnormal marrow replacement and enhancement is seen within the skull base as described above. Metastatic disease would be a leading consideration. Chest X-Ray 05/20/18 07:05 CONCLUSION: 1. Decreased left lower lung consolidation versus atelectasis. 2. Bilateral pulmonary nodules again noted. Assessment and Plan - Plan Assessment Aortic stenosis with a mechanical aortic valve anticoagulated on coumadin prior to admission. Currently on hold due to possible brain bleed. Possible small intracranial hemorrhage Metastatic cancer with brain mets. HTN Hyperlipidemia Abnormal CXR Plan -History of Aortic valve replacement with a mechanical #23 [employer] model # A5-023, placed in 2000 anticoagulated with Coumadin. -Coumadin is currently on hold due to possible small intracranial hemorrhage. Will need to resume anticoagulants as soon as cleared by neurology. Will place consult to neurology. 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 The patient was seen and evaluated by Dr Clemons who completed face to face encounter, physical exam and participated in evaluation and management.
[2018-05-20] MEDS: Sod Chloride 0.9% Inj 1,000 ML IV.SIG SCH (16:22)
--- NOTE | 2018-05-20 17:30 | P.PNNS ---
Subjective Interval history: Pt awake and alert. Pt was previously seen by Dr. Khoury from providing weekend coverage and we are picking up his patients. She complains of frontal headache and nausea. She has some paresthesias in finger tips on right hand but not anywhere else. She has weakness in her right shoulder which is not new and she has had recent surgery and was scheduled to begin PT per pt. Physical Exam Vital signs: Vital Signs 05/19/18 20:00 05/20/18 00:00 05/20/18 04:00 Temperature 98.2 F 98.2 F 98 F Pulse Rate 73 75 77 Respiratory Rate 16 16 16 Blood Pressure 138/71 163/79 H 162/81 H Pulse Oximetry 96 97 97 05/20/18 07:35 05/20/18 08:00 05/20/18 12:05 Temperature 99.0 F Pulse Rate 76 85 94 H Respiratory Rate 16 16 Blood Pressure 179/78 H Pulse Oximetry 96 96 05/20/18 12:56 05/20/18 14:28 05/20/18 16:50 Temperature 98.5 F Pulse Rate 85 82 86 Respiratory Rate 16 Blood Pressure 153/74 H 151/79 H Pulse Oximetry 96 94 L Intake & Output 05/19/18 05/20/18 05/20/18 18:59 06:59 18:59 Intake Total 1000 / 1000 1000 / 1000 Output Total 1075 / 1075 500 / 500 Balance -75 / -75 -500 / -500 1000 / 1000 Weight 58.9 kg 60.6 kg Intake: IV 1000 / 1000 1000 / 1000 NS Inj 1,000 ML @ 50 mls/hr IV. 1000 / 1000 1000 / 1000 SIG .Q20H [facility] Rx#:[id number] Output: Urine 1075 / 1075 500 / 500 Other: Date of Last Bowel Movement 05/18/18 05/18/18 - Constitutional no acute distress, cooperative - Routine HEENT Exam Head: Present: normocephalic, atraumatic Eye: Present: PERRL. Absent: conjunctival icterus ENT: Present: oropharynx clear - Routine Neck Exam Present: trachea midline - Routine Respiratory Exam Present: CTA bilaterally. Absent: respiratory distress, rhonchi, wheezes - Routine Cardiovascular Exam Present: RRR, S1, S2 - Routine Abdominal Exam Present: soft, normoactive bowel sounds. Absent: distended, firm - Routine Skin Exam Absent: cyanosis, erythema - Routine Neurological Exam Present: alert, motor deficit (Right deltoid related to pathology and pt has had recent surgery. She has 5/5 strength in biceps, and HI. Mild right triceps weakness. Strength in LUE and LEs 5/5.), moving all extremities, normal speech. Absent: sensory deficit, altered mental status - Routine Psychiatric Exam Present: normal affect, cooperative. Absent: anxious, agitated Assessment and Plan - Plan 83 y/o female with hyperdensity on CT concerning for small intracranial hemorrhage, MR with findings concerning for metastatic deposits in the calvarium. - No neurosurgical intervention indicated. Hold coumadin given concern for intracranial hemorrhage. This was confirmed with Dr. Quijano also. - Repeat CT brain in 2 weeks to evaluate right frontal area (if resolving, then most likely consistent with hemorrhage). If resolved will clear to resume anticoagulation. - PET/CT performed at outside facility 1 month ago. Recommend repeat to assess calvarial lesions and obtain prior imaging for comparison.
--- NOTE | 2018-05-20 18:08 | P.PN ---
Subjective Interval history: RN denies any deterioration since last night. Pt c/o some fatigue. Physical Exam Vital signs: Vital Signs 05/19/18 20:00 05/20/18 00:00 05/20/18 04:00 Temperature 98.2 F 98.2 F 98 F Pulse Rate 73 75 77 Respiratory Rate 16 16 16 Blood Pressure 138/71 163/79 H 162/81 H Pulse Oximetry 96 97 97 05/20/18 07:35 05/20/18 08:00 05/20/18 12:00 Temperature Pulse Rate 76 85 82 Respiratory Rate 16 Blood Pressure Pulse Oximetry 96 05/20/18 12:05 05/20/18 12:56 05/20/18 16:00 Temperature 99.0 F Pulse Rate 94 H 85 84 Respiratory Rate 16 Blood Pressure 179/78 H 153/74 H Pulse Oximetry 96 96 05/20/18 16:50 Temperature 98.5 F Pulse Rate 86 Respiratory Rate 16 Blood Pressure 151/79 H Pulse Oximetry 94 L Intake & Output 05/19/18 05/20/18 05/20/18 18:59 06:59 18:59 Intake Total 1000 / 1000 1000 / 1000 Output Total 1075 / 1075 500 / 500 Balance -75 / -75 -500 / -500 1000 / 1000 Weight 58.9 kg 60.6 kg Intake: IV 1000 / 1000 1000 / 1000 NS Inj 1,000 ML @ 50 mls/hr IV. 1000 / 1000 1000 / 1000 SIG .Q20H [facility] Rx#:[id number] Output: Urine 1075 / 1075 500 / 500 Other: Date of Last Bowel Movement 05/18/18 05/18/18 Narrative: clear lungs BL, unlabored breathing Heart sounds regular rate rhythm lying in bed, NAD AA Results - Labs CBC & Chem 7: 05/19/18 03:50 05/19/18 03:50 Microbiology 05/18/18 13:10 Blood - Peripheral Aerobic Blood Culture - Preliminary No growth in 2 days 05/18/18 13:10 Blood - Peripheral Anaerobic Blood Culture - Preliminary No growth in 2 days 05/18/18 13:15 Blood - Peripheral Aerobic Blood Culture - Preliminary No growth in 2 days 05/18/18 13:15 Blood - Peripheral Anaerobic Blood Culture - Preliminary No growth in 2 days - Imaging Impressions Chest X-Ray 05/20/18 07:05 CONCLUSION: 1. Decreased left lower lung consolidation versus atelectasis. 2. Bilateral pulmonary nodules again noted. Assessment and Plan - Plan 83-year-old white female admitted for possible intracranial bleed. Is on CIC, stable hemodynamically. Tolerating some p.o. intake. -Headache Possible brain metastasis versus small parenchymal bleed versus artifact. Oncology does not feel that this is a bleed. neurosurgery affirms that withholding the patient's anticoagulation (which she gets for her mechanical valves). Neurosurgery recommends nonetheless repeat imaging in about 2 weeks. -metastatic breast cancer with possible metastasis to the brain Appreciate extensive oncology input. -So far temperature is afebrile, blood cultures are negative -pneumothorax- patient had recent lung biopsy- Pulmonology following -history of valve replacement- hold Coumadin for now till neurosurgery evaluation- cards following. renal insufficiency -chronic in nature -hypertension home meds -hypokalemia; will replace. -DVT prophylaxis with SCD's
--- NOTE | 2018-05-20 18:27 | MB ---
cc: Inessa Pozo MD DATE: 05/20/2018 REASON FOR CONSULTATION: Second opinion regarding a possible intracerebral hemorrhage. HISTORY OF PRESENT ILLNESS: This is an 83-year-old woman with history of metastatic breast cancer, who came in with some headache, right-sided for about 10 days with some nausea, possible fever at home. She follows with Dr. Mckeon as well as Alfonso. BP has been a little high. There have been some complaints of heart racing. When she came in, she had a CT of the head as well as an MRI of the head, and was seen by neurosurgery for possible bleed. There were also positive contrast enhancing lesions in the calvarium concerning for metastatic disease. This image showed the right frontal possible bleed versus possible blooming artifact. As you know, she was on warfarin. She has a history of aortic valve replacement, mechanical. PAST MEDICAL HISTORY: Metastatic breast cancer, reflux, bowel, bladder disease, hyperlipidemia, hypertension, heart disease with mechanical valve. She has had colon resection and hip replacement. SOCIAL HISTORY: Does not smoke, does not drink. ALLERGIES TO MEDICINE: NONE REPORTED. PHYSICAL EXAMINATION: VITAL SIGNS: Temperature is 99, pulse 82, respiratory rate 16, blood pressure 153/74. GENERAL: She is awake and alert, fluent. Pupils reactive. Face symmetrical. Tongue midline. NEUROLOGIC: Motor darling, she seems to be moving everything equally. Cerebellar normal. Gait is withheld at this time. LABORATORY DATA: GFR is 37. Her urine is unremarkable. Coag panel INR today is 1.7, yesterday was 1.7 the day prior was 2.0. CBC: Hemoglobin 9.1, platelets are 263,000. We reviewed her images regarding her CT that shows a possible sliver- like hemorrhage in the right frontal region, cortical region. An MRI of the brain was done with and without contrast on 05/18/2018 that shows abnormality, increased density on CT, has corresponding blooming artifact on susceptibility weighted imaging, also can be seen a small parenchymal bleed versus artifact versus calcification from a prior possible insult, also abnormalities on this exam include: Extraaxial mass in the right frontal falx, possible meningioma versus metastatic deposit, pituitary is heterogeneous, thickening of the stalk. Abnormal marrow replacement and enhancement in the skull base as described, possible metastatic. IMPRESSION: Possible right small hemorrhage with possible metastatic findings in the calvarium. Unfortunately, CT and MRI are not conclusive, but I would tend to repeat an MRI tonight or tomorrow; however, if it is still questionable with hemorrhage it would be difficult to put her back on anticoagulation unless she is willing to accept the risk that she may have a larger hemorrhage. I will go ahead and order the MRI of the brain. Depending on what that shows, further recommendations will be made as necessary, but this time, no anticoagulation. Please call me with any questions or concerns. MD ETHAN [email or web address] , 05:00 PM , 05:09 PM
[2018-05-20] MEDS: Senna/Docusate Sodium 8.6/50 MG Tablet PO PRN (20:09)
--- NOTE | 2018-05-20 23:38 | MR ---
EXAM DATE: 05/20/2018 6:24 PM EDT AGE/SEX: 83 years / Female INDICATIONS: CVA. CLINICAL DATA: This is the patient's initial encounter. Patient reports that signs and symptoms have been present for 1 day and indicates a pain score of 3/10. MEDICAL/SURGICAL HISTORY: Carcinoma, breast. . Hip replacements, Valve replacement. COMPARISON: [facility] [place], MR HEAD W & W/O CONTRAST, 05/18/2018. [facility] [place], CT HEAD W/O CONTRAST, 05/18/2018. . TECHNIQUE: Multiplanar, multisequence examination of the brain was performed without contrast. FINDINGS: Cerebrum: The ventricles are normal for age. No evidence of midline shift, mass lesion, hemorrhage or acute infarction. No extraaxial fluid collections are seen. Focal thickening of the anterior falx which had demonstrated enhancement on prior MR is stable in appearance. Stable appearance to the mar row replacing process in the clivus and right occipital condyle. The enlarged pituitary and pituitary stalk is stable in appearance. The focal area of susceptibility artifact in the posterior right stan etal mid convexity (hyperdense on noncontrast CT) is stable in appearance and has features characteri stic of chronic blood products. White Matter: No significant signal abnormalities are seen in the white matter. Posterior Fossa: The cerebellum and brainstem are intact. The 4th ventricle is midline. The cerebel lopontine angle is unremarkable. The cerebellar tonsils are normal in position. Diffusion Imaging: No focal areas of restricted diffusion are seen. No evidence of acute infarction . Extracranial: The visualized portions of the orbits and paranasal sinuses are unremarkable. CONCLUSION: 1. No evidence of acute infarction. 2. Other findings noted on MRI of the brain with and without contrast on 05/18/2018 are stable, inclu ding susceptibility artifact in the posterior right parietal region, marrow replacing lesions in the clivus and right occipital condyle, enlarged pituitary, and masslike thickening of the anterior falx. Electronically signed by: Blas Becker MD 05/20/2018 11:36 PM EDT
--- NOTE | 2018-05-21 07:28 | P.PNONC ---
Subjective Interval history: Patient seen and examined, vital signs, labs, medications and MRI dated 2017 reviewed. Events of yesterday evening also discussed with the patient; patient reports while getting onto the MRI table she fell back and hit her head. She reports having some pain on the back of her head, MRI dated 05/20/2018 revealed stable findings when compared to MRI dated 05/18/2018. Patient started Xeloda tablets 1000 mg twice daily yesterday. She denies having any sores in the mouth, she tells me her taste is poor and she has no appetite. Objective Vital Signs/Intake & Output: Vital Signs 05/20/18 07:35 05/20/18 08:00 05/20/18 12:00 Temperature Pulse Rate 76 85 82 Respiratory Rate 16 Blood Pressure Pulse Oximetry 96 05/20/18 12:05 05/20/18 12:56 05/20/18 16:00 Temperature 99.0 F Pulse Rate 94 H 85 84 Respiratory Rate 16 Blood Pressure 179/78 H 153/74 H Pulse Oximetry 96 96 05/20/18 16:50 05/20/18 19:43 05/20/18 20:02 Temperature 98.5 F 99.2 F Pulse Rate 86 90 93 H Respiratory Rate 16 16 Blood Pressure 151/79 H 159/77 H Pulse Oximetry 94 L 98 05/20/18 22:10 05/20/18 23:27 05/21/18 00:07 Temperature 98.9 F Pulse Rate 85 86 83 Respiratory Rate 16 Blood Pressure 185/80 H 162/87 H Pulse Oximetry 95 94 L 05/21/18 03:22 05/21/18 03:59 Temperature 97.9 F Pulse Rate 81 82 Respiratory Rate 16 Blood Pressure 138/72 Pulse Oximetry 97 Intake & Output 05/20/18 05/21/18 05/21/18 18:59 06:59 18:59 Intake Total 1357 / 1357 400 / 400 Output Total 1999 1025 / 1025 Balance -643 / -643 -625 / -625 Weight 60.6 kg Intake: IV 1000 / 1000 NS Inj 1,000 ML @ 50 mls/hr IV. 1000 / 1000 SIG .Q20H [facility] Rx#:[id number] Oral 357 / 357 400 / 400 Output: Urine 1999 1025 / 1025 Other: Date of Last Bowel Movement 05/18/18 # Bowel Movements 0 Result Diagrams: 05/19/18 03:50 05/19/18 03:50 Culture Results: Microbiology 05/18/18 13:10 Aerobic Blood Culture - Preliminary Blood - Peripheral No growth in 2 days Anaerobic Blood Culture - Preliminary No growth in 2 days 05/18/18 13:15 Aerobic Blood Culture - Preliminary Blood - Peripheral No growth in 2 days Anaerobic Blood Culture - Preliminary No growth in 2 days Imaging Studies: Impressions Head MRI 05/20/18 00:00 CONCLUSION: 1. No evidence of acute infarction. 2. Other findings noted on MRI of the brain with and without contrast on 2017 are stable, including susceptibility artifact in the posterior right parietal region, marrow replacing lesions in the clivus and right occipital condyle, enlarged pituitary, and masslike thickening of the anterior falx. Medications: Active Medications Generic Name Dose Route Start Last Admin Trade Name Freq PRN Reason Stop Dose Admin Hydrocodone Bitart/Acetaminophen 1 tab 05/18/18 18:56 05/21/18 02:25 [place] 5/325 PO 1 tab Q4H PRN Administration pain 4-10 Hydrochlorothiazide 12.5 mg 05/19/18 09:00 05/20/18 09:14 Microzide PO 12.5 mg DAILY FAVIO Administration Sodium Chloride 1,000 mls @ 50 mls/hr 05/18/18 19:15 05/20/18 16:22 Ns Inj IV.SIG 50 mls/hr .Q20H FAVIO Administration Lidocaine HCl 1 patch 05/19/18 14:00 05/20/18 09:15 Lidoderm 5% Patch.12 Hr T-DERMAL 1 patch DAILY FAVIO Administration Lorazepam 0.5 mg 05/20/18 08:30 05/20/18 20:08 Ativan PO 0.5 mg Q12H PRN Administration ANXIETY Losartan Potassium 100 mg 05/19/18 09:00 05/20/18 09:15 Cozaar PO 100 mg DAILY FAVIO Administration Ondansetron HCl 4 mg 05/19/18 01:14 05/20/18 06:38 Zofran Inj IV.PUSH 4 mg Q6H PRN Administration NAUSEA OR VOMITING Patch Removal 1 each 05/19/18 21:00 05/20/18 20:17 Remove Old Patch T-DERMAL 1 each HS FAVIO Administration Pt Own Med : 0 each 05/20/18 10:30 05/20/18 20:09 Capecitabine (Xeloda PO 05/23/18 23:59 1 each ) 500mg Tablets BID FAVIO Administration Pravastatin Sodium 20 mg 05/19/18 09:00 05/20/18 09:15 Pravachol PO 20 mg DAILY FAVIO Administration Senna/Docusate Sodium 1 tab 05/20/18 08:31 05/20/18 20:09 Caty-Colace PO 1 tab BID PRN Administration CONSTIPATION Objective Remarks: GENERAL: Elderly lady, laying in bed, appears anxious but not acutely distressed , well-nourished, well-developed patient. SKIN: Warm and dry. HEAD: Normocephalic. EYES: No scleral icterus. No injection or drainage. Oral examination: No ulcers noted along the tongue, no erythema, no masses. NECK: Supple, trachea midline. No JVD or lymphadenopathy. LYMPHATIC: No adenopathy. CARDIOVASCULAR: Aortic mechanical click, regular rate and rhythm, S1-S2 no obvious murmurs rubs gallops. RESPIRATORY: Breath sounds equal bilaterally. No accessory muscle use. GASTROINTESTINAL: Abdomen soft, non-tender, nondistended. EXTREMITIES: No cyanosis, or edema. MUSCULOSKELETAL: Adequate muscle tone. NEUROLOGICAL: No obvious focal deficit. Awake, alert, and oriented x3. PSYCHIATRIC: Anxious. Awake, alert and oriented. Assessment/Plan - Plan Ms. Carson is an 83-year-old female with a diagnosis of metastatic breast carcinoma with extensive and known metastatic disease burden to the axial skeleton including the sternum, ribs, cervical, thoracic and lumbar spine as well as her pelvis. She has been on various lines of systemic therapy including adjuvant systemic chemotherapy consisting of docetaxel and Cytoxan in 2014, between August 2017 and now she has been on anastrozole, Ibrance, Faslodex, Verzenio. She has been on medication for management of her bony metastases which consists of either Xgeva or Zometa. Most recently she was initiated on palliative systemic therapy consisting of Capecitabine 1000 mg twice daily; the plan was to treat her for 7 days and give her 7 days off. She started the treatment on Saturday, by her third dose on Saturday she had developed tongue swelling and pain. She also had fevers associated with a cough producing green phlegm. The patient was last seen by me at my [facility] office ([facility]) on Saturday as an inpatient consultation. She was in fact sent by me from my office to the ER for management of severe pain. 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 Recommendations: 1. Metastatic breast carcinoma: Her-2/oleksandr amplification studies on FISH are pending at this time (I checked with [facility] on 05/19/2018 in the afternoon, results were not yet available). I requested pharmacy to allow resumption of outpatient Capecitabine at 1000 mg twice daily. 2. Pain control: With opioid analgesics. 3. Bony metastases: She is on either Zometa or Xgeva. I will verify with my office and document the specific medication she has been on and the most recent dosing. 4. Symptomatic bony metastases: She has had numerous areas treated with palliative radiation, she is also undergone open reduction and internal fixation for management of pathologic fractures or impending pathologic fractures. 5. Anticoagulation for a mechanical aortic valve: Presently on hold due to concern for possible small volume intracranial hemorrhage. Await neurology/ neurosurgery clearance for resumption of anticoagulation. The patient was seen yesterday by her product safety tester. Their notes are reviewed. 6. Anxiety: I have started the patient on Lorazepam 0.5 mg p.o. every 12 hours. The patient is extremely anxious and was unable to sleep, she tells me she is trembling because of her anxiety. Instructions the nurses are to hold this medication for oversedation. 7. Intracranial findings on MRI brain appears stable. Concern for possible infarct versus small intracranial/intraparenchymal hemorrhage. Per neurosurgery patient may resume therapeutic anticoagulation in [address] head indicates no evidence of progression of intracranial hemorrhage.
--- NOTE | 2018-05-21 09:09 | P.PNCA ---
Subjective Interval history: No acute complaints this morning. Still pending neurology consult for review and recommendation for anticoagulation. BP elevated past 24 hours. Medications and Allergies Active Medications: Active Medications Acetaminophen (Tylenol) 650 mg PO Q4H PRN PRN Reason: fever/pain 1-3 Hydrocodone Bitart/Acetaminophen ([place] 5/325) 1 tab PO Q4H PRN PRN Reason: pain 4-10 Last Admin: 05/21/18 02:25 Dose: 1 tab Hydrochlorothiazide (Microzide) 12.5 mg PO DAILY [facility] Last Admin: 05/20/18 09:14 Dose: 12.5 mg Sodium Chloride (Ns Inj) 1,000 mls @ 50 mls/hr IV.SIG .Q20H [facility] Last Admin: 05/20/18 16:22 Dose: 50 mls/hr Lidocaine HCl (Lidoderm 5% Patch.12 Hr) 1 patch T-DERMAL DAILY [facility] Last Admin: 05/20/18 09:15 Dose: 1 patch Lorazepam (Ativan) 0.5 mg PO Q12H PRN PRN Reason: ANXIETY Last Admin: 05/20/18 20:08 Dose: 0.5 mg Losartan Potassium (Cozaar) 100 mg PO DAILY [facility] Last Admin: 05/20/18 09:15 Dose: 100 mg Ondansetron HCl (Zofran Inj) 4 mg IV.PUSH Q6H PRN PRN Reason: NAUSEA OR VOMITING Last Admin: 05/20/18 06:38 Dose: 4 mg Patch Removal (Remove Old Patch) 1 each T-DERMAL HS [facility] Last Admin: 05/20/18 20:17 Dose: 1 each Pt Own Med : Capecitabine (Xeloda ) 500mg Tablets 0 each PO BID [facility] Stop: 05/23/18 23:59 Last Admin: 05/20/18 20:09 Dose: 1 each Pt Own Med : Capecitabine (Xeloda ) 500mg Tablets 0 each PO BID [facility] Stop: 06/06/18 23:59 Pravastatin Sodium (Pravachol) 20 mg PO DAILY [facility] Last Admin: 05/20/18 09:15 Dose: 20 mg Senna/Docusate Sodium (Caty-Colace) 1 tab PO BID PRN PRN Reason: CONSTIPATION Last Admin: 05/20/18 20:09 Dose: 1 tab Sodium Chloride (Ns Flush) 2 ml IV.FLUSH PRN PRN PRN Reason: FLUSH AFTER USING IV ACCESS Allergies Allergy/AdvReac Type Severity Reaction Status Date / Time No Known Allergies Allergy Unverified 05/18/18 12:34 Home Medications Medication Instructions Recorded Confirmed Type capecitabine 1,000 mg PO Q12H 05/18/18 05/18/18 History capecitabine 500 mg PO DAILY 05/18/18 05/18/18 History hydrochlorothiazide 12.5 mg PO DAILY 05/18/18 05/18/18 History lisinopril 05/18/18 History losartan 100 mg PO DAILY 05/18/18 05/18/18 History ondansetron HCl [Zofran] 4 mg PO Q6HR 05/18/18 05/19/18 History oxycodone-acetaminophen [Percocet] 1 tab PO Q4-6H PRN 05/18/18 05/18/18 History pantoprazole 40 mg PO DAILY 05/18/18 05/18/18 History pravastatin 20 mg PO DAILY 05/18/18 05/18/18 History vit D3-folic [id number] 05/18/18 History warfarin 2.5 mg PO Q OTHER DAY 05/18/18 05/18/18 History warfarin [Coumadin] 1.25 mg PO EVERY OTHER DAY 05/18/18 05/18/18 History Physical Exam Vital signs: Vital Signs 05/20/18 12:00 05/20/18 12:05 05/20/18 12:56 Temperature 99.0 F Pulse Rate 82 94 H 85 Respiratory Rate 16 Blood Pressure 179/78 H 153/74 H Pulse Oximetry 96 96 05/20/18 16:00 05/20/18 16:50 05/20/18 19:43 Temperature 98.5 F 99.2 F Pulse Rate 84 86 90 Respiratory Rate 16 16 Blood Pressure 151/79 H 159/77 H Pulse Oximetry 94 L 98 05/20/18 20:02 05/20/18 22:10 05/20/18 23:27 Temperature 98.9 F Pulse Rate 93 H 85 86 Respiratory Rate 16 Blood Pressure 185/80 H 162/87 H Pulse Oximetry 95 94 L 05/21/18 00:07 05/21/18 03:22 05/21/18 03:59 Temperature 97.9 F Pulse Rate 83 81 82 Respiratory Rate 16 Blood Pressure 138/72 Pulse Oximetry 97 Intake & Output 05/20/18 05/21/18 05/21/18 18:59 06:59 18:59 Intake Total 1357 / 1357 400 / 400 Output Total 1999 1025 / 1025 Balance -643 / -643 -625 / -625 Weight 60.6 kg Intake: IV 1000 / 1000 NS Inj 1,000 ML @ 50 mls/hr IV. 1000 / 1000 SIG .Q20H [facility] Rx#:[id number] Oral 357 / 357 400 / 400 Output: Urine 1999 1025 / 1025 Other: Date of Last Bowel Movement 05/18/18 # Bowel Movements 0 - Constitutional no acute distress Comments: walking to the bathroom - Routine HEENT Exam Head: Present: normocephalic - Routine Neck Exam Present: supple - Routine Respiratory Exam Present: CTA bilaterally - Routine Cardiovascular Exam Present: RRR, murmur - Routine Abdominal Exam Present: soft - Routine Extremities Exam Comments: no edema, right chest port - Routine Skin Exam Present: intact - Routine Neurological Exam Present: alert, oriented X3 - Routine Psychiatric Exam Present: normal affect, normal thought process Results 05/19/18 03:50 05/19/18 03:50 Intake and Output 05/20/18 05/21/18 05/21/18 22:59 06:59 14:59 Intake Total 1357 / 1357 400 / 400 Output Total 2325 / 2325 700 / 700 Balance -968 / -968 -300 / -300 Intake: IV 1000 / 1000 NS Inj 1,000 ML @ 50 mls/hr IV. 1000 / 1000 SIG .Q20H [facility] Rx#:[id number] Oral 357 / 357 400 / 400 Output: Urine 2325 / 2325 700 / 700 Other: Date of Last Bowel Movement 05/18/18 # Bowel Movements 0 Weight 60.6 kg - Imaging and Cardiology Imaging: Impressions Head MRI 05/20/18 00:00 CONCLUSION: 1. No evidence of acute infarction. 2. Other findings noted on MRI of the brain with and without contrast on 2017 are stable, including susceptibility artifact in the posterior right parietal region, marrow replacing lesions in the clivus and right occipital condyle, enlarged pituitary, and masslike thickening of the anterior falx. Chest X-Ray 05/20/18 07:05 CONCLUSION: 1. Decreased left lower lung consolidation versus atelectasis. 2. Bilateral pulmonary nodules again noted. Assessment and Plan - Plan Assessment Aortic stenosis with a mechanical aortic valve anticoagulated on coumadin prior to admission. Currently on hold due to possible brain bleed. Possible small intracranial hemorrhage Metastatic cancer with brain mets. HTN Hyperlipidemia Abnormal CXR Plan -History of Aortic valve replacement with a mechanical #23 [employer] model # A5-023, placed in 2000 anticoagulated with Coumadin. -Coumadin is currently on hold due to possible small intracranial hemorrhage. Will need to resume anticoagulants as soon as cleared by neurology. 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 - add amlodipine 2.5 mg qhs. The patient was seen and evaluated by Dr Clemons who completed face to face encounter, physical exam and participated in evaluation and management.
[2018-05-21] MEDS: Senna/Docusate Sodium 8.6/50 MG Tablet PO PRN (10:40)
[2018-05-21] MEDS: CAPECITABINE 500 MG PO SCH (10:43)
[2018-05-21] MEDS: Lidocaine 5% Patch T-DERMAL SCH (12:40)
[2018-05-21 13:26] VITALS: BP 158/73; TEMP 98.9; O2SAT 96
[2018-05-21] MEDS: Sod Chloride 0.9% Inj 1,000 ML IV.SIG SCH (13:43)
[2018-05-21 14:28] VITALS: PULSE 82
--- NOTE | 2018-05-21 14:52 | P.DS ---
Date of admission: 05/18/18 17:33 Primary care physician: UNKNOWN Brief History from admission: patient is a 83 y/o female with metastatic breast cancer who presented to ER with headache. she says that she's had right-sided headache for about ten days. headache was associated with nausea but with no emesis or dizziness. she says that she had a fever at home although she was afebrile at the time of presentation to ER. she denies any sob but has occasional cough. she says that she had a lung biopsy about ten days ago. she denies any chest pain or abdominal pain but she says that she's feeling weak. she's being followed up by [facility] and . DS: Medications - Discharge Medications Prescriptions: lorazepam 0.5 mg PO Q12H PRN #6 tab PRN Reason: Anxiety DS: Summary Hospital Course: 83-year-old white female admitted for possible intracranial bleed. Neurosurgery evaluated the patient, with concern for possible intracranial bleed and further recommendations anticoagulation had had been held with the judgment that the risks of mechanical valve malfunction would not outweigh the risk of a worsening intracranial bleed. Patient's headache stabilized. Was tolerating p.o. intake. Patient was extensively counseled on the expectations that her mechanical valve could malfunction and/or her intracranial bleed could worsen given the course of her treatment. Patient verbalized understanding. Patient has met maximal benefit from hospitalization is clinically stable for discharge. Is to get a repeat MRI in about 10 days time (2 weeks from the initial MRI) and if findings of what appears to have been a bleed improved can be restarted on anticoagulation per neurosurgery. pt to Also follow-up with oncology for her treatment. - Time Spent with Patient Total time spent providing and/or coordinating discharge services: Less than 30 minutes - Quality: VTE Deep Vein Thrombosis/Pulmonary Embolism Present on Admission: No Exam Vital signs: Vital Signs 05/20/18 16:00 05/20/18 16:50 05/20/18 19:43 Temperature 98.5 F 99.2 F Pulse Rate 84 86 90 Respiratory Rate 16 16 Blood Pressure 151/79 H 159/77 H Pulse Oximetry 94 L 98 05/20/18 20:02 05/20/18 22:10 05/20/18 23:27 Temperature 98.9 F Pulse Rate 93 H 85 86 Respiratory Rate 16 Blood Pressure 185/80 H 162/87 H Pulse Oximetry 95 94 L 05/21/18 00:07 05/21/18 03:22 05/21/18 03:59 Temperature 97.9 F Pulse Rate 83 81 82 Respiratory Rate 16 Blood Pressure 138/72 Pulse Oximetry 97 05/21/18 08:00 05/21/18 12:00 Temperature 98.9 F 98.9 F Pulse Rate 85 82 Respiratory Rate 16 16 Blood Pressure 158/73 H 158/73 H Pulse Oximetry 96 96 Intake & Output 05/20/18 05/21/18 05/21/18 18:59 06:59 18:59 Intake Total 1357 / 1357 400 / 400 1000 / 1000 Output Total 1999 1025 / 1025 Balance -643 / -643 -625 / -625 1000 / 1000 Weight 60.6 kg Intake: IV 1000 / 1000 1000 / 1000 NS Inj 1,000 ML @ 50 mls/hr IV. 1000 / 1000 1000 / 1000 SIG .Q20H [facility] Rx#:[id number] Oral 357 / 357 400 / 400 Output: Urine 1999 1025 / 1025 Other: Date of Last Bowel Movement 05/18/18 # Bowel Movements 0 Narrative: No slurred speech, no obvious facial droop Alert and oriented x3 Unlabored breathing, no acute distress Results Procedures completed during hospitalization: . Labs on day of discharge: Preliminary micro results at discharge 05/18/18 13:10 Aerobic Blood Culture - Preliminary Blood - Peripheral No growth in 3 days Anaerobic Blood Culture - Preliminary No growth in 3 days 05/18/18 13:15 Aerobic Blood Culture - Preliminary Blood - Peripheral No growth in 3 days Anaerobic Blood Culture - Preliminary No growth in 3 days - Impressions ITS Impressions Head CT 05/18/18 12:57 The examination demonstrates patchy hypodensity in the bilateral periventricular white matter and centrum semiovale most likely related to chronic microvascular ischemic disease. There is identified in the right frontal cortical/subcortical region on axial image 21 curvilinear high density which may reflect a small amount of parenchymal blood. No surrounding edema. No mass effect. CONCLUSION: 1. Patchy white matter disease. This is most likely chronic in nature. 2. Indeterminate area of hypodensity in the right frontal cortical/subcortical white matter may reflect a sliver-like area of hemorrhage. Given the history of malignancy consider MRI of the brain with and without contrast for further assessment. . Chest CT 05/18/18 13:39 CONCLUSION: 1. Metastatic disease to the chest with bilateral pulmonary nodules, bilateral effusions left greater than right. 2. Ascending aortic aneurysm. 3. Indeterminate hypervascular liver lesion. 4. Cholelithiasis. 5. There is a right-sided pneumothorax. Foot X-Ray 05/18/18 13:52 CONCLUSION: Decreased bone density. Calcaneal spur. Head MRI 05/20/18 00:00 CONCLUSION: 1. No evidence of acute infarction. 2. Other findings noted on MRI of the brain with and without contrast on 2017 are stable, including susceptibility artifact in the posterior right parietal region, marrow replacing lesions in the clivus and right occipital condyle, enlarged pituitary, and masslike thickening of the anterior falx. Chest X-Ray 05/20/18 07:05 CONCLUSION: 1. Decreased left lower lung consolidation versus atelectasis. 2. Bilateral pulmonary nodules again noted. Discharge Plan - Discharge Disposition Patient Disposition: [facility] Rehab Inpatient - Discharge Condition Condition: Stable - Discharge Order Discharge Orders: Discharge Order (Routine); Ordered 05/21/18 Ordered By: Teddy Balderas - Discharge Details Discharge Comment: needs repeat MRI brain in 10 days - Physicians Team Primary Care Provider: UNKNOWN, Attending Provider: Teddy Balderas Other Providers: Jesús Khoury MD ; Katy Clemons MD ; Nathna Mckoen MD ; Inessa Pozo MD ; Klaus Tobar MD
--- NOTE | 2018-05-21 16:51 | P.PN ---
Subjective Interval history: [facility]. Physical Exam Vital signs: Vital Signs 05/20/18 16:50 05/20/18 19:43 05/20/18 20:02 Temperature 98.5 F 99.2 F Pulse Rate 86 90 93 H Respiratory Rate 16 16 Blood Pressure 151/79 H 159/77 H Pulse Oximetry 94 L 98 05/20/18 22:10 05/20/18 23:27 05/21/18 00:07 Temperature 98.9 F Pulse Rate 85 86 83 Respiratory Rate 16 Blood Pressure 185/80 H 162/87 H Pulse Oximetry 95 94 L 05/21/18 03:22 05/21/18 03:59 05/21/18 08:00 Temperature 97.9 F 98.9 F Pulse Rate 81 82 85 Respiratory Rate 16 16 Blood Pressure 138/72 158/73 H Pulse Oximetry 97 96 05/21/18 12:00 Temperature 98.9 F Pulse Rate 82 Respiratory Rate 16 Blood Pressure 158/73 H Pulse Oximetry 96 Intake & Output 05/20/18 05/21/18 05/21/18 18:59 06:59 18:59 Intake Total 1357 / 1357 400 / 400 1000 / 1000 Output Total 1999 1025 / 1025 Balance -643 / -643 -625 / -625 1000 / 1000 Weight 60.6 kg Intake: IV 1000 / 1000 1000 / 1000 NS Inj 1,000 ML @ 50 mls/hr IV. 1000 / 1000 1000 / 1000 SIG .Q20H [facility] Rx#:[id number] Oral 357 / 357 400 / 400 Output: Urine 1999 1025 / 1025 Other: Date of Last Bowel Movement 05/18/18 # Bowel Movements 0 Narrative: awake alert nad fluent perrla motor intact gen weakness Results - Labs CBC & Chem 7: 05/19/18 03:50 05/19/18 03:50 Microbiology 05/18/18 13:10 Blood - Peripheral Aerobic Blood Culture - Preliminary No growth in 3 days 05/18/18 13:10 Blood - Peripheral Anaerobic Blood Culture - Preliminary No growth in 3 days 05/18/18 13:15 Blood - Peripheral Aerobic Blood Culture - Preliminary No growth in 3 days 05/18/18 13:15 Blood - Peripheral Anaerobic Blood Culture - Preliminary No growth in 3 days - Imaging Impressions Head MRI 05/20/18 00:00 CONCLUSION: 1. No evidence of acute infarction. 2. Other findings noted on MRI of the brain with and without contrast on 2017 are stable, including susceptibility artifact in the posterior right parietal region, marrow replacing lesions in the clivus and right occipital condyle, enlarged pituitary, and masslike thickening of the anterior falx. Assessment and Plan - Plan agree to hold AC for now recheck ct brain next week Saturday if at that time no evidence of blood or ich likely can restart AC. May need serial images to follow this. ok for rehab.
--- NOTE | 2018-05-21 17:16 | P.PNPL ---
Subjective Interval history: 83 YOWF with metastatic breast ca, AVR,headache CT chest showed small Ptx Denies CP Mild sob with activity Appetite poor, no difficulty swallowing Physical Exam Vital signs: Vital Signs 05/20/18 19:43 05/20/18 20:02 05/20/18 22:10 Temperature 99.2 F Pulse Rate 90 93 H 85 Respiratory Rate 16 Blood Pressure 159/77 H 185/80 H Pulse Oximetry 98 95 05/20/18 23:27 05/21/18 00:07 05/21/18 03:22 Temperature 98.9 F 97.9 F Pulse Rate 86 83 81 Respiratory Rate 16 16 Blood Pressure 162/87 H 138/72 Pulse Oximetry 94 L 97 05/21/18 03:59 05/21/18 08:00 05/21/18 12:00 Temperature 98.9 F 98.9 F Pulse Rate 82 85 82 Respiratory Rate 16 16 Blood Pressure 158/73 H 158/73 H Pulse Oximetry 96 96 Intake & Output 05/20/18 05/21/18 05/21/18 18:59 06:59 18:59 Intake Total 1357 / 1357 400 / 400 1000 / 1000 Output Total 1999 1025 / 1025 Balance -643 / -643 -625 / -625 1000 / 1000 Weight 60.6 kg Intake: IV 1000 / 1000 1000 / 1000 NS Inj 1,000 ML @ 50 mls/hr IV. 1000 / 1000 1000 / 1000 SIG .Q20H [facility] Rx#:[id number] Oral 357 / 357 400 / 400 Output: Urine 1999 1025 / 1025 Other: Date of Last Bowel Movement 05/18/18 # Bowel Movements 0 GENERAL: Elderly WF, weak , no sob SKIN: Warm and dry. HEAD: Normocephalic. EYES: No scleral icterus. No injection or drainage. NECK: Supple, trachea midline. No JVD or lymphadenopathy. CARDIOVASCULAR: Regular rate and rhythm without murmurs, gallops, or rubs. RESPIRATORY: Breath sounds equal bilaterally. No accessory muscle use. GASTROINTESTINAL: Abdomen soft, non-tender, nondistended. MUSCULOSKELETAL: No cyanosis, or edema. BACK: Nontender without obvious deformity. No CVA tenderness. Assessment and Plan - Plan IMPRESSION: 1. Small tiny pneumothorax. 2. Metastatic breast carcinoma. 3. Headache. 4. Metallic aortic valve. 5. Hypertension. PLAN: Supplement 02 Aerosol nebs Lidoderm patch Controll BP DW pt and daughter at [facility] plans underway for [facility]
[2018-05-22] MEDS ORDERED: amLODIPine 5 MG Tablet PO SCH (09:00)
[2018-05-31] MEDS ORDERED: CAPECITABINE 500 MG PO SCH (09:00)
== END 2018-05-21 17:16 ==
LOC: NEPC 11:03 → NEDA 17:33 → NEDH 23:09 → HCIN 05-19 00:33
PROVIDERS: ADMIT Hospitalist; ATTEND Hospitalist